=== PATIENT | female | born 1950 | race Caucasian/White ===

== ENCOUNTER 2016-04-13 14:03 | Emergency (ER) | payer MEDICAID, MEDICARE ==
[~2016-04-13] VITALS: Ht 152.4 cm; Wt 47.6 kg
[~2016-04-13 14:03] MED LIST: CILO100T PO; DIPH25TA43 PO; GABA-494 PO; INVANZ IV; LANS30CA63 PO; MELA5CAP PO; METO25TA5 PO; NOR5T PO; OXYB5TAB62 PO; RIVA20TA PO
[2016-04-13 15:17] LABS: Basophils # (auto) 0 uL; Basophils % (auto) 0.3 % (0.0-2.0); Eosinophils # (auto) 0.3 uL; Eosinophils % (auto) 2.1 % (0.0-7.0); Hematocrit 40.1 % (36.0-46.0); Hemoglobin 12.9 g/dL (12.2-16.2); Lymphocytes # (auto) 2.2 uL; Lymphocytes % (auto) 17.9 % (10.0-50.0); Mean Corpuscular Hemoglobin 28.6 pg (28.0-32.0); Mean Corpuscular Hgb Conc. 32.2 g/dL (32.0-36.0); Mean Corpuscular Volume 88.6 fL (80.0-100.0); Mean Platelet Volume 7.3 fL (7.4-10.4); Monocytes # (auto) 0.4 uL; Monocytes % (auto) 3.6 % (0.0-12.0); Neutrophils # (auto) 9.2 uL; Neutrophils % (auto) 76.1 % (37.0-80.0); Platelet Count (auto) 439 10^3/uL (140-450); Red Cell Distribution Width 14.2 % (11.6-16.0)
[2016-04-13 15:26] LABS: Albumin 3.4 g/dL (3.4-5.0); BUN/Creatinine Ratio 45.5; Bilirubin, Total 0.3 mg/dL (0.2-1.0); Calcium 9.2 mg/dL (8.5-10.1); Magnesium 2.1 mg/dL (1.6-2.6); Potassium 4.2 mmol/L (3.5-5.1); Total Protein 7.1 g/dL (6.4-8.2)
[2016-04-13 19:24] VITALS: BP 123/76
[2016-04-13] MEDS ORDERED: HYDROcodone-ACET 10/325MG TAB PO ONE ×2 (20:15)
== END 2016-04-13 20:36 | disposition home or self-care (01) ==
LOC: EDBD 14:03 → ER 14:11
DX: T62.2X1A Toxic effect of other ingested (parts of) plant(s), accidental (unintentional), initial encounter (principal); K29.70 Gastritis, unspecified, without bleeding; J44.9 Chronic obstructive pulmonary disease, unspecified; I11.0 Hypertensive heart disease with heart failure; E11.9 Type 2 diabetes mellitus without complications; I25.2 Old myocardial infarction; K21.9 Gastro-esophageal reflux disease without esophagitis; E78.5 Hyperlipidemia, unspecified; F17.210 Nicotine dependence, cigarettes, uncomplicated; I48.91 Unspecified atrial fibrillation; Z79.899 Other long term (current) drug therapy; Z86.73 Personal history of transient ischemic attack (TIA), and cerebral infarction without residual deficits; Z88.6 Allergy status to analgesic agent; Z88.8 Allergy status to other drugs, medicaments and biological substances; Z98.61 Coronary angioplasty status; Y93.9 Activity, unspecified; Y99.9 Unspecified external cause status; Y92.89 Other specified places as the place of occurrence of the external cause
CPT/HCPCS: 36415; 71010; 80053; 83735; 84484; 85025; 93005; 94761

== ENCOUNTER 2016-12-13 23:02 | Emergency (ER) | payer OTHER ==
[~2016-12-13] VITALS: Ht 162.6 cm; Wt 49.9 kg
[~2016-12-13 23:02] MED LIST changes: +HYDR-4663 PO; -NOR5T PO
[2016-12-13 23:34] LABS: Basophils # (auto) 0.1 uL; Basophils % (auto) 0.7 % (0.0-2.0); Eosinophils # (auto) 0.2 uL; Eosinophils % (auto) 1.4 % (0.0-7.0); Hematocrit 42.1 % (36.0-46.0); Hemoglobin 14.4 g/dL (12.2-16.2); Lymphocytes # (auto) 2.5 uL; Lymphocytes % (auto) 21.8 % (10.0-50.0); Mean Corpuscular Hemoglobin 30.9 pg (28.0-32.0); Mean Corpuscular Hgb Conc. 34.3 g/dL (32.0-36.0); Mean Corpuscular Volume 90.1 fL (80.0-100.0); Mean Platelet Volume 7.2 fL (7.4-10.4); Monocytes # (auto) 0.6 uL; Monocytes % (auto) 5.1 % (0.0-12.0); Nucleated Red Blood Cells % 0.1 %; Platelet Count (auto) 471 10^3/uL (140-450); Red Cell Distribution Width 14.2 % (11.6-16.0); White Blood Cell 11.2 10^3/uL (4.4-10.8)
[2016-12-13 23:45] VITALS: BP 136/71
[2016-12-13 23:50] LABS: INR 0.95 (0.9-1.15); Partial Thromboplastin Time 28.7 sec (22.64-33.71); Prothrombin Time 10.4 sec (9.37-12.3)
[2016-12-13 23:57] LABS: Amylase 8 U/L (25-115); Anion Gap 9 (5-15); Aspartate Aminotransferase 19 U/L (15-37); BUN/Creatinine Ratio 19.7; Blood Urea Nitrogen 12 mg/dL (7-18); Calcium 9.1 mg/dL (8.5-10.1); Carbon Dioxide 21 mmol/L (21-32); Chloride 109 mmol/L (98-107); GFR African American 127 mL/min; GFR Non-African American 105 mL/min; Glucose 225 mg/dL (74-106); Magnesium 2.1 mg/dL (1.6-2.6); Potassium 3.9 mmol/L (3.5-5.1); Sodium 139 mmol/L (136-145)
[2016-12-14 00:02] LABS: Alkaline Phosphatase 166 U/L (45-117); Bilirubin, Total 0.4 mg/dL (0.2-1.0); Total Protein 7.1 g/dL (6.4-8.2)
[2016-12-14] MEDS ORDERED: MORPHINE SULF INJ 2 MG/ML SYRINGE 1ML IV ONE (00:45)
[2016-12-14] MEDS ORDERED: ONDANSETRON HCL 4 MG/2 ML VIAL IV ONE (00:45)
[2016-12-14] MEDS ORDERED: CIPROFLOXACIN HCL 500 MG TAB PO ONE (01:45)
[2016-12-14 02:32] LABS: Urine Bilirubin Negative (Negative); Urine Blood 2+ /uL (Negative); Urine Color Yellow (Yellow); Urine Glucose Normal (Normal); Urine Ketone Negative (Negative); Urine Mucus FEW (None Seen); Urine Nitrite POSITIVE (Negative); Urine RBC 54 /hpf (0 - 4); Urine Squamous Epithelial Cell MOD /hpf (<5); Urine Urobilinogen Normal (Negative); Urine WBC Clumps PRESENT /hpf (None Seen)
== END 2016-12-14 01:56 | disposition home or self-care (01) ==
LOC: ER 23:02 → EDBD 23:02 → ER 12-14 01:56
DX: N39.0 Urinary tract infection, site not specified (principal); I11.0 Hypertensive heart disease with heart failure; I50.9 Heart failure, unspecified; E78.5 Hyperlipidemia, unspecified; F17.210 Nicotine dependence, cigarettes, uncomplicated; K21.9 Gastro-esophageal reflux disease without esophagitis; Z86.73 Personal history of transient ischemic attack (TIA), and cerebral infarction without residual deficits; J44.9 Chronic obstructive pulmonary disease, unspecified; Z90.710 Acquired absence of both cervix and uterus; Z90.89 Acquired absence of other organs; Z98.61 Coronary angioplasty status; Z88.6 Allergy status to analgesic agent; Z88.8 Allergy status to other drugs, medicaments and biological substances; Z79.899 Other long term (current) drug therapy
CPT/HCPCS: 36415; 74176; 80053; 80307; 81001; 82150; 83690; 83735; 84484; 85025; 85610; 85730; 93005; 96374; 96375; 99285; J2270; J2405

== ENCOUNTER 2017-04-22 19:30 | Emergency (ER) | payer OTHER ==
[~2017-04-22] VITALS: Ht 152.4 cm; Wt 48.5 kg
[~2017-04-22 19:30] MED LIST changes: -GABA-494 PO; +GABA100C9 PO; -HYDR-4663 PO; +HYDR-4683 PO
[2017-04-22 20:15] LABS: Basophils # (auto) 0.1 uL; Basophils % (auto) 0.8 % (0.0-2.0); Eosinophils # (auto) 0.1 uL; Eosinophils % (auto) 1.3 % (0.0-7.0); Hematocrit 40.9 % (36.0-46.0); Hemoglobin 13.6 g/dL (12.2-16.2); Lymphocytes # (auto) 2.1 uL; Lymphocytes % (auto) 18.1 % (10.0-50.0); Mean Corpuscular Hgb Conc. 33.2 g/dL (32.0-36.0); Mean Corpuscular Volume 90.5 fL (80.0-100.0); Monocytes # (auto) 0.6 uL; Monocytes % (auto) 5.3 % (0.0-12.0); Neutrophils # (auto) 8.5 uL; Neutrophils % (auto) 74.5 % (37.0-80.0); Platelet Count (auto) 344 10^3/uL (140-450); Red Blood Cells 4.52 10^6/uL (4.0-5.20); Red Cell Distribution Width 13.8 % (11.8-14.3); White Blood Cell 11.3 10^3/uL (4.4-10.8)
[2017-04-22 20:26] LABS: INR 1.02 (0.9-1.15); Partial Thromboplastin Time 30.3 sec (22.64-33.71); Prothrombin Time 11.1 sec (9.37-12.3)
[2017-04-22 20:57] LABS: Alanine Aminotransferase 16 U/L (13-56); Albumin 3.1 g/dL (3.4-5.0); Alkaline Phosphatase 176 U/L (45-117); Anion Gap 12 (5-15); Aspartate Aminotransferase 15 U/L (15-37); BUN/Creatinine Ratio 28.4; Blood Urea Nitrogen 27 mg/dL (7-18); Calcium 7.9 mg/dL (8.5-10.1); Carbon Dioxide 16 mmol/L (21-32); Chloride 111 mmol/L (98-107); GFR African American 76 mL/min; GFR Non-African American 63 mL/min; Glucose 172 mg/dL (74-106); Sodium 139 mmol/L (136-145); Total Protein 7.2 g/dL (6.4-8.2)
[2017-04-22 21:31] LABS: Bilirubin, Total 0.3 mg/dL (0.2-1.0)
[2017-04-22] MEDS ORDERED: HYDROcodone-ACET 5/325MG TAB PO ONE (21:45)
[2017-04-22] MEDS ORDERED: SODIUM CHLORIDE 0.9% 1,000 ML IV ONE (21:45)
[2017-04-22 22:38] LABS: Partial Thromboplastin Time 29.5 sec (22.64-33.71); Prothrombin Time 10.9 sec (9.37-12.3)
[2017-04-22 23:25] LABS: Urine Bacteria MANY /hpf (None Seen); Urine Blood 1+ /uL (Negative); Urine Specific Gravity 1.012 (1.001-1.035); Urine WBC 217 /hpf (0 - 5); Urine WBC Clumps PRESENT /hpf (None Seen)
[2017-04-23] MEDS ORDERED: cefTRIAXone 1GM/10ml IVPUSH 10 ML IV ONE (00:45)
[2017-04-23 03:32] VITALS: BP 183/79
== END 2017-04-23 04:05 | disposition home or self-care (01) ==
LOC: EDUNIT# 19:30 → ER 19:30 → EDBD 19:30 → ER 04-23 04:05
DX: N39.0 Urinary tract infection, site not specified (principal); R10.9 Unspecified abdominal pain; R07.89 Other chest pain; E11.9 Type 2 diabetes mellitus without complications; R51 Headache; I25.2 Old myocardial infarction; Z86.73 Personal history of transient ischemic attack (TIA), and cerebral infarction without residual deficits; Z88.6 Allergy status to analgesic agent; Z88.8 Allergy status to other drugs, medicaments and biological substances
CPT/HCPCS: 36415; 51702; 70450; 80053; 81001; 83735; 83880; 84443; 84484; 85025; 85379; 85610; 85730; 93005; 96361; 96374; 99285; J7030

== ENCOUNTER 2017-05-21 04:01 | Emergency (ER) | payer OTHER ==
[~2017-05-21] VITALS: Ht 160 cm; Wt 49.9 kg
[2017-05-21 05:48] LABS: Urine Bacteria FEW /hpf (None Seen); Urine Blood Negative /uL (Negative); Urine Mucus FEW (None Seen); Urine Specific Gravity 1.011 (1.001-1.035); Urine WBC 18 /hpf (0 - 5)
[2017-05-21 05:49] LABS: Urine Budding Yeast Few /hpf (None Seen)
[2017-05-21 05:53] LABS: Alcohol, Urine < 3.0 mg/dL (0-5); Amphetamine Screen, Urine NEGATIVE (NEGATIVE); Barbiturate Scree,Urine NEGATIVE (NEGATIVE); Benzodiazephine Screen, Urine NEGATIVE (NEGATIVE); Cannabinoid Screen, Urine NEGATIVE (NEGATIVE); Cocaine Screen, Urine NEGATIVE (NEGATIVE); Opiate Scree,Urine NEGATIVE (NEGATIVE); Phencyclidine Screen, Urine NEGATIVE (NEGATIVE)
[2017-05-21 05:58] LABS: Basophils # (auto) 0 uL; Basophils % (auto) 0.4 % (0.0-2.0); Eosinophils # (auto) 0.1 uL; Eosinophils % (auto) 1.2 % (0.0-7.0); Hematocrit 41.1 % (36.0-46.0); Hemoglobin 13.5 g/dL (12.2-16.2); Lymphocytes # (auto) 1.9 uL; Lymphocytes % (auto) 16.4 % (10.0-50.0); Mean Corpuscular Hemoglobin 29.9 pg (28.0-32.0); Mean Corpuscular Hgb Conc. 32.9 g/dL (32.0-36.0); Mean Corpuscular Volume 90.8 fL (80.0-100.0); Monocytes # (auto) 0.7 uL; Monocytes % (auto) 6.4 % (0.0-12.0); Neutrophils # (auto) 8.6 uL; Neutrophils % (auto) 75.6 % (37.0-80.0); Nucleated Red Blood Cells % 0.1 %; Platelet Count (auto) 321 10^3/uL (140-450); Red Blood Cells 4.52 10^6/uL (4.0-5.20); Red Cell Distribution Width 14.3 % (11.8-14.3); White Blood Cell 11.4 10^3/uL (4.4-10.8)
[2017-05-21 06:11] LABS: Alanine Aminotransferase 17 U/L (13-56); Anion Gap 10 (5-15); Aspartate Aminotransferase 17 U/L (15-37); BUN/Creatinine Ratio 40.8; Blood Alcohol < 3.0 mg/dL (0-5); Blood Urea Nitrogen 31 mg/dL (7-18); Calcium 8.2 mg/dL (8.5-10.1); Carbon Dioxide 19 mmol/L (21-32); Chloride 112 mmol/L (98-107); GFR African American 98 mL/min; GFR Non-African American 81 mL/min; Glucose 136 mg/dL (74-106); Potassium 3.9 mmol/L (3.5-5.1); Sodium 141 mmol/L (136-145)
[2017-05-21 06:16] LABS: Alkaline Phosphatase 202 U/L (45-117); Bilirubin, Total 0.3 mg/dL (0.2-1.0); Total Protein 6.9 g/dL (6.4-8.2)
[2017-05-21 07:23] VITALS: BP 127/69
[2017-05-21] MEDS ORDERED: SODIUM CHLORIDE 0.9% 1,000 ML IV ONE (08:30)
[2017-05-21] MEDS ORDERED: LEVOFLOXACIN 750MG 150 ML IV ONE (08:30)
== END 2017-05-21 12:12 | disposition home or self-care (01) ==
LOC: ER 04:01 → MERGE 04:01 → EDUNIT# 04:01 → EDBD 04:01 → ER 12:12
DX: R40.0 Somnolence (principal); N39.0 Urinary tract infection, site not specified; E44.1 Mild protein-calorie malnutrition; Z68.1 Body mass index [BMI] 19.9 or less, adult; E11.9 Type 2 diabetes mellitus without complications; I10 Essential (primary) hypertension; I25.2 Old myocardial infarction; Z86.73 Personal history of transient ischemic attack (TIA), and cerebral infarction without residual deficits; Z88.8 Allergy status to other drugs, medicaments and biological substances; Z87.440 Personal history of urinary (tract) infections; Z90.710 Acquired absence of both cervix and uterus; Z87.891 Personal history of nicotine dependence
CPT/HCPCS: 36415; 70450; 71045; 80053; 80307; 80320; 81001; 83735; 84443; 84484; 85025; 87086; 87088; 87186; 93005; 96365; 99285; J1956; J7030

== ENCOUNTER 2017-12-27 21:11 | Inpatient (IN) | payer OTHER ==
[~2017-12-27] VITALS: Ht 160 cm; Wt 44.8 kg
[~2017-12-27 21:11] MED LIST changes: +OXYB5TAB24 PO; -OXYB5TAB62 PO
[2017-12-27] MEDS ORDERED: ACETAMINOPHEN 325 MG TAB PO ONE (22:15)
[2017-12-27] MEDS ORDERED: SODIUM CHLORIDE 0.9% 1,000 ML IVB ONE (22:19)
[2017-12-27 22:52] LABS: Basophils # (auto) 0 uL; Basophils % (auto) 0.4 % (0.0-2.0); Eosinophils # (auto) 0 uL; Eosinophils % (auto) 0.1 % (0.0-7.0); Hematocrit 43.5 % (36.0-46.0); Hemoglobin 14.5 g/dL (12.2-16.2); Lymphocytes % (auto) 10.1 % (10.0-50.0); Mean Corpuscular Hemoglobin 29.9 pg (28.0-32.0); Mean Corpuscular Hgb Conc. 33.5 g/dL (32.0-36.0); Mean Corpuscular Volume 89.3 fL (80.0-100.0); Monocytes # (auto) 0.6 uL; Monocytes % (auto) 6.2 % (0.0-12.0); Neutrophils # (auto) 8.6 uL; Neutrophils % (auto) 83.2 % (37.0-80.0); Platelet Count (auto) 264 10^3/uL (140-450); Red Blood Cells 4.87 10^6/uL (4.0-5.20); Red Cell Distribution Width 14.5 % (11.8-14.3); White Blood Cell 10.3 10^3/uL (4.4-10.8)
[2017-12-27 23:11] LABS: Partial Thromboplastin Time 31.9 sec (23.78-33.04); Prothrombin Time 10.7 sec (9.27-12.13)
[2017-12-27 23:19] LABS: Alanine Aminotransferase 14 U/L (13-56); Albumin 3.1 g/dL (3.4-5.0); Anion Gap 10 (5-15); Aspartate Aminotransferase 14 U/L (15-37); Blood Alcohol < 3.0 mg/dL (0-5); Blood Urea Nitrogen 13 mg/dL (7-18); Calcium 8.5 mg/dL (8.5-10.1); Carbon Dioxide 20 mmol/L (21-32); Chloride 105 mmol/L (98-107); GFR African American 159 mL/min; GFR Non-African American 132 mL/min; Glucose 179 mg/dL (74-106); Magnesium 1.9 mg/dL (1.6-2.6); Potassium 3.6 mmol/L (3.5-5.1); Sodium 135 mmol/L (136-145)
[2017-12-27 23:28] LABS: Alkaline Phosphatase 123 U/L (45-117); Bilirubin, Total 0.8 mg/dL (0.2-1.0); Total Protein 7.6 g/dL (6.4-8.2)
[2017-12-27 23:37] LABS: Urine Bacteria MANY /hpf (None Seen); Urine Blood 1+ /uL (Negative); Urine Budding Yeast FEW /hpf (None Seen); Urine Specific Gravity 1.018 (1.001-1.035); Urine WBC 202 /hpf (0 - 5)
[2017-12-27 23:56] LABS: Amphetamine Screen, Urine NEGATIVE (NEGATIVE); Barbiturate Scree,Urine NEGATIVE (NEGATIVE); Benzodiazephine Screen, Urine NEGATIVE (NEGATIVE); Cannabinoid Screen, Urine NEGATIVE (NEGATIVE); Cocaine Screen, Urine NEGATIVE (NEGATIVE); Opiate Scree,Urine NEGATIVE (NEGATIVE); Phencyclidine Screen, Urine NEGATIVE (NEGATIVE)
[2017-12-28] MEDS ORDERED: PIPERACILLIN-TAZOB 3.375GM 100 ML IV ONE (01:30)
[2017-12-28] MEDS ORDERED: ACETAMINOPHEN 500 MG TAB PO PRN (04:45)
[2017-12-28] MEDS ORDERED: ONDANSETRON HCL 4 MG/2 ML VIAL IV PRN (04:45)
[2017-12-28] MEDS: GABAPENTIN 100 MG CAP PO SCH ×3 (06:00→22:26)
[2017-12-28 07:18] LABS: Basophils # (auto) 0 uL; Basophils % (auto) 0.5 % (0.0-2.0); Eosinophils # (auto) 0 uL; Eosinophils % (auto) 0.3 % (0.0-7.0); Hematocrit 39.4 % (36.0-46.0); Hemoglobin 13.7 g/dL (12.2-16.2); Lymphocytes # (auto) 1.1 uL; Lymphocytes % (auto) 15.1 % (10.0-50.0); Mean Corpuscular Hemoglobin 31.2 pg (28.0-32.0); Mean Corpuscular Hgb Conc. 34.7 g/dL (32.0-36.0); Monocytes # (auto) 0.6 uL; Monocytes % (auto) 7.9 % (0.0-12.0); Neutrophils # (auto) 5.8 uL; Neutrophils % (auto) 76.2 % (37.0-80.0); Platelet Count (auto) 233 10^3/uL (140-450); Red Blood Cells 4.38 10^6/uL (4.0-5.20); Red Cell Distribution Width 14.6 % (11.8-14.3); White Blood Cell 7.6 10^3/uL (4.4-10.8)
[2017-12-28 07:36] LABS: BUN/Creatinine Ratio 25.6; Calcium 8.3 mg/dL (8.5-10.1); Potassium 3.5 mmol/L (3.5-5.1)
[2017-12-28] MEDS: cefTRIAXone 1GM/10ml IVPUSH 10 ML IV SCH (08:04)
[2017-12-28] MEDS: METOPROLOL TARTRATE 25 MG TAB PO SCH ×2 (08:04→22:26)
[2017-12-28] MEDS: HYDROcodone-ACET 5/325MG TAB PO PRN ×3 (08:05→22:40)
[2017-12-28] MEDS: ONDANSETRON HCL 4 MG/2 ML VIAL IV PRN ×3 (08:05→22:40)
[2017-12-28 15:13] VITALS: BP 128/66
[2017-12-28 17:24] VITALS: BP 118/67
[2017-12-28] MEDS ORDERED: NICOTINE 21MG/24 HR TOPICAL PATCH TD SCH (18:45)
[2017-12-28] MEDS: NICOTINE 7MG/24HR TOPICAL PATCH TD SCH (19:01)
[2017-12-28 22:00] VITALS: BP 138/69
[2017-12-29 05:00] VITALS: BP 151/70
[2017-12-29] MEDS: GABAPENTIN 100 MG CAP PO SCH ×3 (07:03→22:19)
[2017-12-29 07:55] LABS: Basophils # (auto) 0 uL; Basophils % (auto) 0.5 % (0.0-2.0); Eosinophils # (auto) 0.1 uL; Eosinophils % (auto) 1.2 % (0.0-7.0); Hematocrit 42.6 % (36.0-46.0); Hemoglobin 14.4 g/dL (12.2-16.2); Lymphocytes # (auto) 1.7 uL; Lymphocytes % (auto) 27.4 % (10.0-50.0); Mean Corpuscular Hemoglobin 30.6 pg (28.0-32.0); Mean Corpuscular Hgb Conc. 33.8 g/dL (32.0-36.0); Mean Corpuscular Volume 90.4 fL (80.0-100.0); Monocytes # (auto) 0.6 uL; Neutrophils # (auto) 3.8 uL; Neutrophils % (auto) 60.9 % (37.0-80.0); Nucleated Red Blood Cells % 0.2 %; Platelet Count (auto) 266 10^3/uL (140-450); Red Blood Cells 4.71 10^6/uL (4.0-5.20); Red Cell Distribution Width 14.4 % (11.8-14.3); White Blood Cell 6.3 10^3/uL (4.4-10.8)
[2017-12-29 08:01] VITALS: BP 142/67
[2017-12-29 08:08] LABS: BUN/Creatinine Ratio 27.8; Magnesium 2.4 mg/dL (1.6-2.6); Potassium 3.7 mmol/L (3.5-5.1)
[2017-12-29] MEDS: NICOTINE 7MG/24HR TOPICAL PATCH TD SCH ×2 (10:00→10:17)
[2017-12-29] MEDS: METOPROLOL TARTRATE 25 MG TAB PO SCH ×2 (10:19→22:20)
[2017-12-29] MEDS: cefTRIAXone 1GM/10ml IVPUSH 10 ML IV SCH (11:20)
[2017-12-29 11:24] VITALS: BP 146/77
[2017-12-29] MEDS: HYDROcodone-ACET 5/325MG TAB PO PRN ×2 (14:03→22:19)
[2017-12-29 16:47] VITALS: BP 137/74
[2017-12-29] MEDS: PROCHLORPERAZINE EDISYLATE 5 MG/ML 2ML VIAL IV PRN (20:31)
[2017-12-29 22:00] VITALS: BP 162/81
[2017-12-29] MEDS ORDERED: TEMAZEPAM 15 MG CAP PO ONE (23:10)
[2017-12-30] MEDS: HYDROcodone-ACET 5/325MG TAB PO PRN ×2 (04:10→11:51)
[2017-12-30 05:00] VITALS: BP 169/90
[2017-12-30] MEDS: GABAPENTIN 100 MG CAP PO SCH (05:45)
[2017-12-30] MEDS: PROCHLORPERAZINE EDISYLATE 5 MG/ML 2ML VIAL IV PRN (05:46)
[2017-12-30 09:22] VITALS: BP 184/94
[2017-12-30] MEDS: cefTRIAXone 1GM/10ml IVPUSH 10 ML IV SCH (09:23)
[2017-12-30] MEDS: NICOTINE 7MG/24HR TOPICAL PATCH TD SCH (09:23)
[2017-12-30] MEDS: METOPROLOL TARTRATE 25 MG TAB PO SCH (09:31)
[2017-12-30 11:21] VITALS: BP 136/84
[2017-12-30] MEDS: ONDANSETRON HCL 4 MG/2 ML VIAL IV PRN (11:50)
[2017-12-30 13:00] VITALS: BP 134/82
== END 2017-12-30 13:30 | disposition home health service (06) | DRG 871 ==
LOC: EDBD 21:11 → EDUNIT# 21:11 → ER 21:19 → OVERFLOW 21:20 → WEST WING 12-28 14:25
PROVIDERS: ADMIT Nurse Practitioner Family; ATTEND Internal Medicine
DX: A41.9 Sepsis, unspecified organism (principal); G93.41 Metabolic encephalopathy; E87.1 Hypo-osmolality and hyponatremia; E44.0 Moderate protein-calorie malnutrition; B49 Unspecified mycosis; Z68.1 Body mass index [BMI] 19.9 or less, adult; E11.42 Type 2 diabetes mellitus with diabetic polyneuropathy; N30.80 Other cystitis without hematuria; B96.1 Klebsiella pneumoniae [K. pneumoniae] as the cause of diseases classified elsewhere; I48.0 Paroxysmal atrial fibrillation; I10 Essential (primary) hypertension; Z78.9 Other specified health status; Z79.01 Long term (current) use of anticoagulants; Z81.8 Family history of other mental and behavioral disorders; Z82.49 Family history of ischemic heart disease and other diseases of the circulatory system; Z83.3 Family history of diabetes mellitus; Z86.73 Personal history of transient ischemic attack (TIA), and cerebral infarction without residual deficits; I25.2 Old myocardial infarction; Z88.8 Allergy status to other drugs, medicaments and biological substances; Z88.5 Allergy status to narcotic agent; Z79.899 Other long term (current) drug therapy; Z82.0 Family history of epilepsy and other diseases of the nervous system; Z82.5 Family history of asthma and other chronic lower respiratory diseases; Z84.89 Family history of other specified conditions
CPT/HCPCS: 36415; 71045; 80048; 80053; 80307; 80320; 81001; 83036; 83605; 83735; 83880; 84484; 85025; 85610; 85730; 86141; 87040; 87086; 87088; 87186; 93005; 94761; 96365; 96375; 97116; A6257; J0696; J2405; J2543

== ENCOUNTER 2018-05-30 17:35 | Inpatient (IN) | payer OTHER | END 2018-06-02 17:40 | disposition home health service (06) | LOC: CENTRAL 23:45 → TELE-CENTR 05-31 02:38 → ER 17:35 → TELE 23:17 | DX: A41.9 Sepsis, unspecified organism (principal); G93.41 Metabolic encephalopathy; N39.0 Urinary tract infection, site not specified; N13.6 Pyonephrosis; F32.9 Major depressive disorder, single episode, unspecified; J44.9 Chronic obstructive pulmonary disease, unspecified; G62.9 Polyneuropathy, unspecified; K21.9 Gastro-esophageal reflux disease without esophagitis; G89.29 Other chronic pain; M48.061 Spinal stenosis, lumbar region without neurogenic claudication ==

== ENCOUNTER 2018-07-22 14:54 | Inpatient (IN) | payer OTHER ==
[~2018-07-22] VITALS: Ht 154.9 cm; Wt 59.3 kg
[~2018-07-22 14:54] MED LIST changes: +BACL10TA PO; -DIPH25TA43 PO; -INVANZ IV; -LANS30CA63 PO; -MELA5CAP PO; -METO25TA5 PO; +PRO10T PO; -RIVA20TA PO; +ROPI4TAB3 PO; +SERT-138 PO; +TRAZ50TA2 PO; +[UNRECOGNIZED DRUG - CODE] PO
[2018-07-22 15:45] LABS: Albumin 3.1 g/dL (3.4-5.0); Calcium 8.6 mg/dL (8.5-10.1); Potassium 3.8 mmol/L (3.5-5.1)
[2018-07-22 15:49] LABS: BUN/Creatinine Ratio 28.6; Bilirubin, Total 0.4 mg/dL (0.2-1.0); Total Protein 7.5 g/dL (6.4-8.2)
[2018-07-22 16:22] LABS: Hematocrit 44.9 % (36.0-46.0); Hemoglobin 14.7 g/dL (12.2-16.2); Mean Corpuscular Hemoglobin 29.3 pg (28.0-32.0); Mean Corpuscular Hgb Conc. 32.7 g/dL (32.0-36.0); Mean Corpuscular Volume 89.8 fL (80.0-100.0); Platelet Count (auto) 305 10^3/uL (140-450); Red Cell Distribution Width 14.9 % (11.8-14.3); White Blood Cell 14.5 10^3/uL (4.4-10.8)
[2018-07-22 16:32] LABS: Basophils % (manual) 0 (0.0-2.0); Blast Cells 0; Eosinophils % (manual) 0 (0-7); Myelocytes % 0; Promyelocytes % 0; Reactive Lymphocytes 0
[2018-07-22] MEDS ORDERED: ONDANSETRON HCL 4 MG/2 ML VIAL IV ONE (17:45)
[2018-07-22] MEDS ORDERED: SODIUM CHLORIDE 0.9% 1,000 ML IV ONE ×2 (17:45→21:15)
[2018-07-22 18:11] LABS: Band Neutrophils % (manual) 13
[2018-07-22 18:12] LABS: Lymphocytes % (manual) 9 (10.0-50.0); Metamyelocytes % 1; Monocytes % (manual) 2 (0-12)
[2018-07-22 18:29] LABS: Urine Bacteria MANY /hpf (None Seen); Urine Blood 2+ /uL (Negative); Urine Budding Yeast MODERATE /hpf (None Seen); Urine Mucus FEW (None Seen); Urine Specific Gravity 1.018 (1.001-1.035); Urine WBC 899 /hpf (0 - 5); Urine WBC Clumps PRESENT /hpf (None Seen)
[2018-07-22 18:34] LABS: Magnesium 1.2 mg/dL (1.6-2.6)
[2018-07-22 18:37] LABS: Partial Thromboplastin Time 29.6 sec (23.78-33.04); Prothrombin Time 10.7 sec (9.27-12.13)
[2018-07-22 19:01] LABS: Lactic Acid w/Reflex 6.3 mmol/L (0.4-2.0)
[2018-07-22] MEDS ORDERED: cefTRIAXone 1GM/50ML D5W 50 ML IV ONE (19:15)
[2018-07-22] MEDS ORDERED: MORPHINE SULFATE 4 MG/ML SYR/VIAL IV ONE (20:15)
[2018-07-22] MEDS: MAGNESIUM SULFATE 1GM/100ML 100 ML IV SCH ×2 (20:51→21:36)
[2018-07-22] MEDS: SODIUM CHLORIDE 0.9% 1,000 ML IV SCH (21:15)
[2018-07-22] MEDS ORDERED: MORPHINE SULF INJ 2 MG/ML SYRINGE 1ML IV PRN (21:15)
[2018-07-22] MEDS ORDERED: VANCOMYCIN PER PHARMACY 0 MG IV SCH (21:15)
[2018-07-22] MEDS ORDERED: BACLOFEN 10 MG TAB PO PRN (21:15)
[2018-07-22] MEDS ORDERED: NITROGLYCERIN 0.4 MG SL TAB SL PRN (21:15)
[2018-07-22] MEDS ORDERED: ACETAMINOPHEN 325 MG TAB PO PRN (21:15)
[2018-07-22] MEDS ORDERED: DEXTROSE (50%) 50ML SYRG IV PRN (21:15)
[2018-07-22] MEDS ORDERED: VANCOMYCIN 1GM/250ML 250 ML IV ONE (21:45)
[2018-07-22 22:30] VITALS: BP 130/66
[2018-07-22 22:40] VITALS: BP 130/66
[2018-07-22] MEDS: GABAPENTIN 400 MG CAP PO SCH (23:30)
[2018-07-22] MEDS: OXYBUTYNIN CHL 5 MG TAB PO SCH (23:30)
[2018-07-22] MEDS: FAMOTIDINE 20 MG TAB PO SCH (23:30)
[2018-07-22] MEDS: CILOSTAZOL 100 MG TAB PO SCH (23:30)
[2018-07-22] MEDS: traZODone HCL 50 MG TAB PO SCH (23:30)
[2018-07-22] MEDS: ACCU-CHEK COMFORT CURVE STRIP VI SCH (23:32)
[2018-07-22] MEDS: InsuLIN REG 1unit/0.01ml Soln (100units/ml) SC SCH (23:40)
[2018-07-22] MEDS: TEMAZEPAM 15 MG CAP PO PRN (23:48)
[2018-07-23] MEDS: ONDANSETRON HCL 4 MG/2 ML VIAL IV PRN ×2 (00:15→10:29)
[2018-07-23] MEDS: HYDROcodone-ACET 5/325MG TAB PO PRN ×3 (00:15→19:33)
[2018-07-23 05:00] VITALS: BP 102/60
[2018-07-23 05:36] LABS: Basophils # (auto) 0 uL; Basophils % (auto) 0.2 % (0.0-2.0); Eosinophils # (auto) 0 uL; Eosinophils % (auto) 0.1 % (0.0-7.0); Hematocrit 39.2 % (36.0-46.0); Hemoglobin 12.9 g/dL (12.2-16.2); Lymphocytes # (auto) 1.9 uL; Lymphocytes % (auto) 13.4 % (10.0-50.0); Mean Corpuscular Hemoglobin 29.4 pg (28.0-32.0); Mean Corpuscular Hgb Conc. 32.8 g/dL (32.0-36.0); Mean Corpuscular Volume 89.6 fL (80.0-100.0); Monocytes # (auto) 0.9 uL; Monocytes % (auto) 6.2 % (0.0-12.0); Neutrophils # (auto) 11.5 uL; Neutrophils % (auto) 80.1 % (37.0-80.0); Platelet Count (auto) 286 10^3/uL (140-450); Red Blood Cells 4.38 10^6/uL (4.0-5.20); Red Cell Distribution Width 15.6 % (11.8-14.3); White Blood Cell 14.4 10^3/uL (4.4-10.8)
[2018-07-23 05:46] LABS: Potassium 4.2 mmol/L (3.5-5.1)
[2018-07-23 05:50] LABS: Albumin 2.6 g/dL (3.4-5.0); Calcium 7.9 mg/dL (8.5-10.1)
[2018-07-23 05:55] LABS: BUN/Creatinine Ratio 33.3; Bilirubin, Total 0.3 mg/dL (0.2-1.0); Total Protein 6.7 g/dL (6.4-8.2)
[2018-07-23] MEDS: traZODone HCL 50 MG TAB PO SCH ×3 (06:30→22:07)
[2018-07-23] MEDS: OXYBUTYNIN CHL 5 MG TAB PO SCH ×3 (06:30→22:07)
[2018-07-23] MEDS: GABAPENTIN 400 MG CAP PO SCH ×3 (06:30→22:08)
[2018-07-23] MEDS: InsuLIN REG 1unit/0.01ml Soln (100units/ml) SC SCH ×3 (06:40→17:14)
[2018-07-23] MEDS: ACCU-CHEK COMFORT CURVE STRIP VI SCH ×3 (06:40→17:14)
[2018-07-23 09:00] VITALS: BP 93/48
[2018-07-23] MEDS: SERTRALINE HCL 50 MG TAB PO SCH (09:53)
[2018-07-23] MEDS: CILOSTAZOL 100 MG TAB PO SCH ×2 (09:53→22:07)
[2018-07-23] MEDS: FAMOTIDINE 20 MG TAB PO SCH (09:53)
[2018-07-23] MEDS: SODIUM CHLORIDE 0.9% 1,000 ML IV SCH (10:39)
[2018-07-23] MEDS: FLUCONAZOLE 200MG/100ML 100 ML IV SCH (12:15)
[2018-07-23 13:00] VITALS: BP 115/79
[2018-07-23 16:52] VITALS: BP 102/62
[2018-07-23] MEDS: VANCOMYCIN 1GM/250ML 250 ML IV SCH (16:57)
[2018-07-23 21:20] VITALS: BP 109/69
[2018-07-23] MEDS: cefTRIAXone 1GM/50ML D5W 50 ML IV SCH (21:23)
[2018-07-23] MEDS: MORPHINE SULF INJ 2 MG/ML SYRINGE 1ML IV PRN (21:24)
[2018-07-23 22:00] VITALS: BP 100/57
[2018-07-23] MEDS: TEMAZEPAM 15 MG CAP PO PRN (22:08)
[2018-07-24] MEDS: InsuLIN REG 1unit/0.01ml Soln (100units/ml) SC SCH ×4 (00:09→17:28)
[2018-07-24] MEDS: ACCU-CHEK COMFORT CURVE STRIP VI SCH ×4 (00:09→17:28)
[2018-07-24 02:20] VITALS: BP 109/69
[2018-07-24] MEDS: ONDANSETRON HCL 4 MG/2 ML VIAL IV PRN ×2 (02:28→21:21)
[2018-07-24] MEDS: MORPHINE SULF INJ 2 MG/ML SYRINGE 1ML IV PRN ×3 (02:28→22:30)
[2018-07-24] MEDS: HYDROcodone-ACET 5/325MG TAB PO PRN ×3 (04:23→19:53)
[2018-07-24 04:49] VITALS: BP 119/54
[2018-07-24] MEDS: traZODone HCL 50 MG TAB PO SCH ×3 (05:13→21:05)
[2018-07-24] MEDS: GABAPENTIN 400 MG CAP PO SCH ×3 (05:13→21:04)
[2018-07-24] MEDS: OXYBUTYNIN CHL 5 MG TAB PO SCH ×3 (05:13→21:04)
[2018-07-24] MEDS: SODIUM CHLORIDE 0.9% 1,000 ML IV SCH ×2 (06:18→17:28)
[2018-07-24 06:57] LABS: Basophils # (auto) 0 uL; Basophils % (auto) 0.3 % (0.0-2.0); Eosinophils # (auto) 0.1 uL; Eosinophils % (auto) 1.4 % (0.0-7.0); Hematocrit 33.3 % (36.0-46.0); Hemoglobin 10.9 g/dL (12.2-16.2); Lymphocytes # (auto) 1.3 uL; Lymphocytes % (auto) 17.2 % (10.0-50.0); Mean Corpuscular Hemoglobin 29.7 pg (28.0-32.0); Mean Corpuscular Hgb Conc. 32.9 g/dL (32.0-36.0); Mean Corpuscular Volume 90.5 fL (80.0-100.0); Monocytes # (auto) 0.5 uL; Monocytes % (auto) 6.8 % (0.0-12.0); Neutrophils # (auto) 5.6 uL; Neutrophils % (auto) 74.3 % (37.0-80.0); Platelet Count (auto) 235 10^3/uL (140-450); Red Blood Cells 3.67 10^6/uL (4.0-5.20); Red Cell Distribution Width 15.1 % (11.8-14.3); White Blood Cell 7.6 10^3/uL (4.4-10.8)
[2018-07-24 07:29] LABS: Potassium 4.3 mmol/L (3.5-5.1)
[2018-07-24 07:37] LABS: Albumin 2.3 g/dL (3.4-5.0)
[2018-07-24 07:42] LABS: Bilirubin, Total 0.2 mg/dL (0.2-1.0)
[2018-07-24 09:00] VITALS: BP 122/60
[2018-07-24] MEDS: FLUCONAZOLE 200MG/100ML 100 ML IV SCH (09:40)
[2018-07-24] MEDS: CILOSTAZOL 100 MG TAB PO SCH ×2 (09:41→21:04)
[2018-07-24] MEDS: SERTRALINE HCL 50 MG TAB PO SCH (09:41)
[2018-07-24] MEDS: FAMOTIDINE 20 MG TAB PO SCH (09:41)
[2018-07-24] MEDS: VANCOMYCIN 1GM/250ML 250 ML IV SCH (11:28)
[2018-07-24 13:00] VITALS: BP 97/57
[2018-07-24 17:00] VITALS: BP 104/50
[2018-07-24] MEDS: cefTRIAXone 1GM/50ML D5W 50 ML IV SCH (21:04)
[2018-07-24 22:00] VITALS: BP 130/62
[2018-07-25] MEDS: InsuLIN REG 1unit/0.01ml Soln (100units/ml) SC SCH ×4 (00:24→18:24)
[2018-07-25] MEDS: ACCU-CHEK COMFORT CURVE STRIP VI SCH ×4 (00:24→18:24)
[2018-07-25] MEDS: TEMAZEPAM 15 MG CAP PO PRN ×2 (00:42→22:45)
[2018-07-25] MEDS: MORPHINE SULF INJ 2 MG/ML SYRINGE 1ML IV PRN ×4 (02:36→21:32)
[2018-07-25 05:06] VITALS: BP 112/57
[2018-07-25] MEDS: GABAPENTIN 400 MG CAP PO SCH ×3 (06:37→21:23)
[2018-07-25 06:38] LABS: Basophils # (auto) 0 uL; Basophils % (auto) 0.5 % (0.0-2.0); Eosinophils # (auto) 0.2 uL; Eosinophils % (auto) 2.7 % (0.0-7.0); Hematocrit 35.5 % (36.0-46.0); Hemoglobin 11.6 g/dL (12.2-16.2); Lymphocytes # (auto) 1.9 uL; Lymphocytes % (auto) 26.8 % (10.0-50.0); Mean Corpuscular Hemoglobin 29.8 pg (28.0-32.0); Mean Corpuscular Hgb Conc. 32.7 g/dL (32.0-36.0); Mean Corpuscular Volume 91.3 fL (80.0-100.0); Monocytes # (auto) 0.6 uL; Monocytes % (auto) 8.7 % (0.0-12.0); Neutrophils # (auto) 4.3 uL; Neutrophils % (auto) 61.3 % (37.0-80.0); Platelet Count (auto) 247 10^3/uL (140-450); Red Blood Cells 3.89 10^6/uL (4.0-5.20); Red Cell Distribution Width 14.9 % (11.8-14.3)
[2018-07-25] MEDS: OXYBUTYNIN CHL 5 MG TAB PO SCH ×3 (06:38→21:23)
[2018-07-25] MEDS: traZODone HCL 50 MG TAB PO SCH ×3 (06:38→21:22)
[2018-07-25] MEDS: SODIUM CHLORIDE 0.9% 1,000 ML IV SCH ×2 (06:47→15:55)
[2018-07-25 06:50] LABS: Potassium 4.6 mmol/L (3.5-5.1)
[2018-07-25 06:53] LABS: Albumin 2.4 g/dL (3.4-5.0); Calcium 7.7 mg/dL (8.5-10.1); Magnesium 1.8 mg/dL (1.6-2.6)
[2018-07-25 06:56] LABS: BUN/Creatinine Ratio 19.3
[2018-07-25 06:59] LABS: Bilirubin, Total 0.2 mg/dL (0.2-1.0); Total Protein 6.2 g/dL (6.4-8.2)
[2018-07-25 08:00] VITALS: BP 156/79
[2018-07-25 09:28] VITALS: BP 156/79
[2018-07-25] MEDS: CILOSTAZOL 100 MG TAB PO SCH ×2 (09:59→21:23)
[2018-07-25] MEDS: SERTRALINE HCL 50 MG TAB PO SCH (09:59)
[2018-07-25] MEDS: FLUCONAZOLE 200MG/100ML 100 ML IV SCH (09:59)
[2018-07-25] MEDS: FAMOTIDINE 20 MG TAB PO SCH (09:59)
[2018-07-25] MEDS: HYDROcodone-ACET 5/325MG TAB PO PRN ×2 (10:06→17:44)
[2018-07-25] MEDS: ONDANSETRON HCL 4 MG/2 ML VIAL IV PRN ×2 (12:15→20:06)
[2018-07-25 13:12] VITALS: BP 130/69
[2018-07-25 17:30] VITALS: BP 139/69
[2018-07-25] MEDS: cefTRIAXone 1GM/50ML D5W 50 ML IV SCH (21:17)
[2018-07-25 22:00] VITALS: BP 114/66
[2018-07-26] MEDS: InsuLIN REG 1unit/0.01ml Soln (100units/ml) SC SCH ×4 (00:01→17:23)
[2018-07-26] MEDS: ACCU-CHEK COMFORT CURVE STRIP VI SCH ×4 (00:01→17:22)
[2018-07-26] MEDS: MORPHINE SULF INJ 2 MG/ML SYRINGE 1ML IV PRN ×2 (02:44→08:49)
[2018-07-26 05:00] VITALS: BP 131/72
[2018-07-26] MEDS: OXYBUTYNIN CHL 5 MG TAB PO SCH ×2 (05:45→13:32)
[2018-07-26] MEDS: GABAPENTIN 400 MG CAP PO SCH ×2 (05:45→13:32)
[2018-07-26] MEDS: traZODone HCL 50 MG TAB PO SCH ×2 (05:45→13:32)
[2018-07-26 06:39] LABS: Basophils # (auto) 0 uL; Basophils % (auto) 0.5 % (0.0-2.0); Eosinophils # (auto) 0.2 uL; Eosinophils % (auto) 3.5 % (0.0-7.0); Hematocrit 33.2 % (36.0-46.0); Hemoglobin 10.7 g/dL (12.2-16.2); Lymphocytes # (auto) 1.6 uL; Lymphocytes % (auto) 25.9 % (10.0-50.0); Mean Corpuscular Hemoglobin 29.4 pg (28.0-32.0); Mean Corpuscular Hgb Conc. 32.4 g/dL (32.0-36.0); Mean Corpuscular Volume 90.8 fL (80.0-100.0); Monocytes # (auto) 0.6 uL; Monocytes % (auto) 8.9 % (0.0-12.0); Neutrophils # (auto) 3.8 uL; Neutrophils % (auto) 61.2 % (37.0-80.0); Platelet Count (auto) 259 10^3/uL (140-450); Red Blood Cells 3.65 10^6/uL (4.0-5.20); Red Cell Distribution Width 15.2 % (11.8-14.3); White Blood Cell 6.2 10^3/uL (4.4-10.8)
[2018-07-26 06:44] LABS: Potassium 4.3 mmol/L (3.5-5.1)
[2018-07-26 06:47] LABS: BUN/Creatinine Ratio 21.3; Calcium 8.1 mg/dL (8.5-10.1)
[2018-07-26 08:00] VITALS: BP 147/60
[2018-07-26 09:00] VITALS: BP 147/69
[2018-07-26] MEDS: ONDANSETRON HCL 4 MG/2 ML VIAL IV PRN (09:01)
[2018-07-26] MEDS: SERTRALINE HCL 50 MG TAB PO SCH (10:21)
[2018-07-26] MEDS: FAMOTIDINE 20 MG TAB PO SCH (10:21)
[2018-07-26] MEDS: FLUCONAZOLE 200MG/100ML 100 ML IV SCH (10:21)
[2018-07-26] MEDS: CILOSTAZOL 100 MG TAB PO SCH (10:21)
[2018-07-26 17:00] VITALS: BP 103/72
[2018-07-26] MEDS: HYDROcodone-ACET 5/325MG TAB PO PRN (18:58)
== END 2018-07-26 20:25 | disposition home health service (06) | DRG 871 ==
LOC: ER 14:54 → EDBD 14:54 → TELE-WESTW 21:23
PROVIDERS: ADMIT Nurse Practitioner; ATTEND Internal Medicine
DX: A41.50 Gram-negative sepsis, unspecified (principal); L89.153 Pressure ulcer of sacral region, stage 3; N13.6 Pyonephrosis; F11.20 Opioid dependence, uncomplicated; E11.9 Type 2 diabetes mellitus without complications; R32 Unspecified urinary incontinence; E83.42 Hypomagnesemia; B96.20 Unspecified Escherichia coli [E. coli] as the cause of diseases classified elsewhere; M54.9 Dorsalgia, unspecified; F32.9 Major depressive disorder, single episode, unspecified; G89.29 Other chronic pain; I10 Essential (primary) hypertension; Z74.01 Bed confinement status; Z81.8 Family history of other mental and behavioral disorders; Z82.49 Family history of ischemic heart disease and other diseases of the circulatory system; Z82.5 Family history of asthma and other chronic lower respiratory diseases; Z83.3 Family history of diabetes mellitus; Z88.1 Allergy status to other antibiotic agents; Z88.5 Allergy status to narcotic agent; Z88.8 Allergy status to other drugs, medicaments and biological substances; Z86.73 Personal history of transient ischemic attack (TIA), and cerebral infarction without residual deficits; Z87.440 Personal history of urinary (tract) infections; Z87.891 Personal history of nicotine dependence; Z90.710 Acquired absence of both cervix and uterus; Z91.19 Patient's noncompliance with other medical treatment and regimen; Z99.3 Dependence on wheelchair
CPT/HCPCS: 36415; 36600; 71045; 74176; 80048; 80053; 80202; 81001; 82150; 82805; 82962; 83036; 83605; 83690; 83735; 84484; 85007; 85025; 85027; 85610; 85730; 87040; 87077; 87086; 87088; 87186; 93005; 94761; 96361; 96365; 96367; G0378; J0696; J1450; J1815; J2405

== ENCOUNTER 2018-10-03 15:18 | Inpatient (IN) | payer OTHER ==
[~2018-10-03] VITALS: Ht 152.4 cm; Wt 54.5 kg
[~2018-10-03 15:18] MED LIST changes: +LEVO500T21 PO; -[UNRECOGNIZED DRUG - CODE] PO
[2018-10-03 16:26] LABS: Basophils # (auto) 0.1 uL; Basophils % (auto) 0.5 % (0.0-2.0); Eosinophils # (auto) 0.2 uL; Eosinophils % (auto) 1.1 % (0.0-7.0); Hematocrit 42.5 % (36.0-46.0); Lymphocytes # (auto) 2.3 uL; Lymphocytes % (auto) 17.1 % (10.0-50.0); Mean Corpuscular Hemoglobin 28.9 pg (28.0-32.0); Mean Corpuscular Volume 87.6 fL (80.0-100.0); Monocytes # (auto) 0.8 uL; Monocytes % (auto) 5.7 % (0.0-12.0); Neutrophils # (auto) 10.2 uL; Neutrophils % (auto) 75.6 % (37.0-80.0); Nucleated Red Blood Cells % 0.1 %; Platelet Count (auto) 372 10^3/uL (140-450); Red Blood Cells 4.85 10^6/uL (4.0-5.20); Red Cell Distribution Width 15.8 % (11.8-14.3); White Blood Cell 13.5 10^3/uL (4.4-10.8)
[2018-10-03 16:29] LABS: Urine Bacteria MANY /hpf (None Seen); Urine Blood 1+ /uL (Negative); Urine Budding Yeast FEW /hpf (None Seen); Urine Specific Gravity 1.006 (1.001-1.035); Urine WBC 569 /hpf (0 - 5); Urine WBC Clumps PRESENT /hpf (None Seen)
[2018-10-03] MEDS ORDERED: SODIUM CHLORIDE 0.9% 1,000 ML IVB ONE (16:33)
[2018-10-03 16:40] LABS: Albumin 3.6 g/dL (3.4-5.0); Calcium 10.3 mg/dL (8.5-10.1); Potassium 4.5 mmol/L (3.5-5.1)
[2018-10-03 16:42] LABS: Bilirubin, Total 0.4 mg/dL (0.2-1.0); Total Protein 7.8 g/dL (6.4-8.2)
[2018-10-03] MEDS ORDERED: ONDANSETRON HCL 4 MG/2 ML VIAL IV ONE (16:45)
[2018-10-03] MEDS ORDERED: MORPHINE SULF INJ 2 MG/ML SYRINGE 1ML IV ONE (16:45)
[2018-10-03 17:15] LABS: Magnesium 1.7 mg/dL (1.6-2.6)
[2018-10-03 18:09] LABS: INR 1.01 (0.9-1.15); Partial Thromboplastin Time 32.7 sec (23.64-32.05)
[2018-10-03] MEDS ORDERED: metroNIDAZOLE 500MG/100ML 100 ML IV ONE (18:15)
[2018-10-03] MEDS ORDERED: cefTRIAXone 1GM/50ML D5W 50 ML IV ONE (18:15)
[2018-10-03] MEDS ORDERED: ACETAMINOPHEN 500 MG TAB PO PRN (19:00)
[2018-10-03] MEDS ORDERED: MORPHINE SULF INJ 2 MG/ML SYRINGE 1ML IV PRN (19:00)
[2018-10-03] MEDS ORDERED: NITROGLYCERIN 0.4 MG SL TAB SL PRN (19:00)
[2018-10-03] MEDS ORDERED: DEXTROSE (50%) 50ML SYRG IV PRN (19:15)
[2018-10-03] MEDS: HYDROcodone-ACET 5/325MG TAB PO PRN (19:49)
[2018-10-03] MEDS: SODIUM CHLORIDE 0.9% 1,000 ML IV SCH (19:49)
--- NOTE | 2018-10-03 20:55 | NUR ---
Telemetry admit from ER JORDAN LOPEZ admitted to Telemetry unit. Patient oriented to Cheri WinterRN primary RN, unit, room, bed, and unit policies regarding patient care and visiting hours. Patient now on continuous telemetry monitoring, tele box #32 and telemetry reading on arrival to unit is Sinus Rhythm heart rate of 86. Patient placed on bedside oxygen 4L via nasal cannula. Glass catheter patent and draining. Patient alert and oriented x 4. No acute S/S of distress or SOB. Weighed by bedscale and encouraged to call if they need something. All questions and concerns addressed, patient verbalized understanding. Bed in lowest locked position, side rails up x 2, call light within reach. Will continue to monitor Q1hr and PRN. Note:
[2018-10-03 21:20] VITALS: BP 104/68
[2018-10-03] MEDS: VANCOMYCIN HCL 125MG/5ML ORAL SOL PO SCH (21:53)
[2018-10-03] MEDS: GABAPENTIN 400 MG CAP PO SCH (21:53)
[2018-10-03] MEDS: OXYBUTYNIN CHL 5 MG TAB PO SCH (21:53)
[2018-10-03] MEDS: InsuLIN REG 1unit/0.01ml Soln (100units/ml) SC SCH (21:54)
[2018-10-03] MEDS: ACCU-CHEK COMFORT CURVE STRIP VI SCH (21:54)
[2018-10-03] MEDS: INSULIN LANTUS (GLARGINE) 1 /0.01ml (100units/ml) SC SCH (21:54)
[2018-10-03] MEDS: MORPHINE SULF INJ 2 MG/ML SYRINGE 1ML IV PRN (22:12)
[2018-10-03 22:20] VITALS: BP 104/68
[2018-10-04] MEDS: MORPHINE SULF INJ 2 MG/ML SYRINGE 1ML IV PRN ×3 (02:47→16:19)
[2018-10-04] MEDS: ONDANSETRON HCL 4 MG/2 ML VIAL IV PRN ×3 (02:47→16:19)
[2018-10-04] MEDS: SODIUM CHLORIDE 0.9% 1,000 ML IV SCH ×3 (02:56→17:15)
[2018-10-04] MEDS: HYDROcodone-ACET 5/325MG TAB PO PRN ×3 (04:12→20:02)
[2018-10-04 05:10] LABS: Basophils # (auto) 0 uL; Basophils % (auto) 0.7 % (0.0-2.0); Eosinophils # (auto) 0.2 uL; Eosinophils % (auto) 2.2 % (0.0-7.0); Hematocrit 41.1 % (36.0-46.0); Hemoglobin 13.2 g/dL (12.2-16.2); Lymphocytes # (auto) 1.7 uL; Lymphocytes % (auto) 23.3 % (10.0-50.0); Mean Corpuscular Hemoglobin 28.7 pg (28.0-32.0); Mean Corpuscular Volume 89.5 fL (80.0-100.0); Monocytes # (auto) 0.5 uL; Monocytes % (auto) 6.3 % (0.0-12.0); Neutrophils % (auto) 67.5 % (37.0-80.0); Platelet Count (auto) 326 10^3/uL (140-450); Red Blood Cells 4.59 10^6/uL (4.0-5.20); White Blood Cell 7.4 10^3/uL (4.4-10.8)
[2018-10-04 05:27] LABS: Anion Gap 11 (5-15); Blood Urea Nitrogen 13 mg/dL (7-18); Calcium 8.1 mg/dL (8.5-10.1); Carbon Dioxide 19 mmol/L (21-32); Chloride 111 mmol/L (98-107); GFR African American 159 mL/min; GFR Non-African American 131 mL/min; Glucose 202 mg/dL (74-106); Potassium 4.4 mmol/L (3.5-5.1); Sodium 141 mmol/L (136-145)
[2018-10-04 05:34] VITALS: BP 147/92
[2018-10-04] MEDS: OXYBUTYNIN CHL 5 MG TAB PO SCH ×3 (05:43→22:20)
[2018-10-04] MEDS: GABAPENTIN 400 MG CAP PO SCH ×3 (05:43→22:20)
[2018-10-04] MEDS: VANCOMYCIN HCL 125MG/5ML ORAL SOL PO SCH ×4 (05:43→22:20)
[2018-10-04] MEDS: ACCU-CHEK COMFORT CURVE STRIP VI SCH ×4 (06:22→22:21)
[2018-10-04] MEDS: InsuLIN REG 1unit/0.01ml Soln (100units/ml) SC SCH ×4 (06:22→22:21)
--- NOTE | 2018-10-04 07:02 | NUR ---
Closing shift note Patient resting in bed. No acute S/S of distress or SOB noted. Bed in lowest locked position, side rails up x 2, call light within reach. Endorsed care to dayshift RN.
--- NOTE | 2018-10-04 07:45 | NUR ---
opening patient awake, in bed, bed in lowest position,call light within reach. NO distress noted at this time. WIll f/u with morning assessment UA shows 4 + leuks urine bacteria culture pending, the MDRO isn't documented on here will clarify with patient/ call infection control mrsa pending blood culture pending ct ab- L and R sided hydronephrosis supra pubic cath is pending, per urology consult with md hayes cardio consult for clearance dietary consult pending will continue to monitor this patient
[2018-10-04 09:00] VITALS: BP_SYST 120; BP_SYST 138; BP_DIAS 57; BP_DIAS 79
--- NOTE | 2018-10-04 09:30 | NUR ---
md evelyn savage, discusses antibiotics, cardio and urology consult to get the procedure taken care of in hospital
[2018-10-04] MEDS: cefTRIAXone 1GM/50ML D5W 50 ML IV SCH (09:59)
[2018-10-04] MEDS: SERTRALINE HCL 50 MG TAB PO SCH (10:00)
[2018-10-04] MEDS: FLORASTOR (S. BOULARDII) 250 MG CAP PO SCH (10:00)
[2018-10-04] MEDS: ROPINIROLE HYDROCHLORIDE 4 MG PO SCH (10:00)
[2018-10-04] MEDS: FAMOTIDINE 20 MG TAB PO SCH (10:01)
--- NOTE | 2018-10-04 11:00 | NUR ---
md meléndez rounding, and discusses stress test to be completed tomorrow, will insert 2nd IV during my shift patient agrees to procedure
[2018-10-04 13:00] VITALS: BP_SYST 120; BP_SYST 138; BP_DIAS 57; BP_DIAS 79
[2018-10-04] MEDS: ERTAPENEM SOD INJ 1 GM in SODIUM CHL 0.9% 50 ML IV SCH (13:39)
[2018-10-04 17:00] VITALS: BP 150/73
[2018-10-04] MEDS: BACLOFEN 10 MG TAB PO SCH (17:12)
--- NOTE | 2018-10-04 19:30 | NUR ---
Opening Shift Note Assumed care of patient, alert and oriented x 4. No S/S of distress/SOB or pain. Patient is on 4L oxygen via nasal cannula, on bedrest and has garcia catheter from home that was changed about a week ago per patient for complicated UTI. Bed in lowest locked position, side rails up x 2, call light within reach, Instructed on POC and to call for assist PRN, will continue to monitor for changes Q1hr and PRN.
[2018-10-04 22:03] VITALS: BP 132/71
[2018-10-04] MEDS: INSULIN LANTUS (GLARGINE) 1 /0.01ml (100units/ml) SC SCH (22:21)
[2018-10-05] MEDS: MORPHINE SULF INJ 2 MG/ML SYRINGE 1ML IV PRN ×5 (00:35→20:47)
--- NOTE | 2018-10-05 00:35 | NUR ---
IV insertion IV access obtained, via clean sterile technique by inserting 22 gauge catheter at right hand after 2 attempts. IV secured properly. No trauma to site. Patient tolerated well. NOTE:
[2018-10-05] MEDS: SODIUM CHLORIDE 0.9% 1,000 ML IV SCH ×3 (02:24→17:32)
[2018-10-05] MEDS: HYDROcodone-ACET 5/325MG TAB PO PRN ×2 (03:45→17:31)
[2018-10-05 05:33] VITALS: BP 133/73
[2018-10-05] MEDS: VANCOMYCIN HCL 125MG/5ML ORAL SOL PO SCH ×4 (05:59→21:36)
[2018-10-05] MEDS: OXYBUTYNIN CHL 5 MG TAB PO SCH ×3 (05:59→21:35)
[2018-10-05] MEDS: GABAPENTIN 400 MG CAP PO SCH ×3 (05:59→21:36)
[2018-10-05] MEDS: ACCU-CHEK COMFORT CURVE STRIP VI SCH ×4 (06:35→21:41)
[2018-10-05] MEDS: InsuLIN REG 1unit/0.01ml Soln (100units/ml) SC SCH ×4 (06:35→21:57)
--- NOTE | 2018-10-05 06:56 | NUR ---
Closing shift note Patient resting in bed. No acute S/S of distress or SOB noted. Bed in lowest locked position, side rails up x 2, call light within reach. Will endorse care to dayshift RN.
--- NOTE | 2018-10-05 07:45 | NUR ---
opening patient in bed, grimacing states her stomach hurts, review orders/emar she received pain medication "morphine" 2 hours previously, will educate patient, patient is still npo prior to stress lab, no other complaints at this time. Will follow up with morning assessment per noc nurse she now has a second IV R hand 22 gauge for stress test. Will continue to monitor this patient
--- NOTE | 2018-10-05 07:51 | NUR ---
call from stress lab they told me patient should remain npo and get ready for the test to begin within the next 1.5 hours
[2018-10-05 08:00] VITALS: BP 157/71
[2018-10-05] MEDS ORDERED: ADENOSINE 46 MG in GIVE UN-DILUTED 0 ML IV STA (08:16)
--- NOTE | 2018-10-05 08:22 | NUR ---
nurse note had nurses aid give patient a heat back per her abdominal pain, however patient refuses the heat pack and only wants pain medication. All medication have been given at this time, will consult with primary MD, and educate this patient about current status of medication times.
[2018-10-05] MEDS: cefTRIAXone 1GM/50ML D5W 50 ML IV SCH (09:24)
[2018-10-05] MEDS: ONDANSETRON HCL 4 MG/2 ML VIAL IV PRN ×2 (09:24→21:35)
[2018-10-05] MEDS: ERTAPENEM SOD INJ 1 GM in SODIUM CHL 0.9% 50 ML IV SCH (09:24)
[2018-10-05] MEDS: FAMOTIDINE 20 MG TAB PO SCH (09:25)
[2018-10-05] MEDS: ROPINIROLE HYDROCHLORIDE 4 MG PO SCH (09:25)
[2018-10-05] MEDS: SERTRALINE HCL 50 MG TAB PO SCH (09:25)
[2018-10-05] MEDS: FLORASTOR (S. BOULARDII) 250 MG CAP PO SCH (09:25)
--- NOTE | 2018-10-05 12:09 | NUR ---
Nutrition consult/assessment Notes please see attached link for complete assessment Est. Needs BW 54 [id number] kcal (25-30 kcal/kgBW), 54-64 gms pro (1.0-1.2 gms/kgBW). Will continue to monitor pertinent labs and reassess nutrient need prn. Addendum: 10/05/18 at [address] Amended: Links added.
--- NOTE | 2018-10-05 12:36 | NUR ---
notifying pharmacy patient is currently in stress lab, per pharmacy keep the vancomycin at the same time that is ordered and just give as soon as possible
--- NOTE | 2018-10-05 14:15 | NUR ---
dr rika savage, states the patient is cleared for procedure stress test negative
--- NOTE | 2018-10-05 14:34 | NUR ---
paging dr hayes (urology) left a message on answering service to get next POC regarding possible procedure (suprapubic catheter)
[2018-10-05 14:35] LABS: INR 1.01 (0.9-1.15)
[2018-10-05 16:57] VITALS: BP 132/81
[2018-10-05] MEDS: BACLOFEN 10 MG TAB PO SCH (17:31)
--- NOTE | 2018-10-05 19:30 | NUR ---
Opening Shift Note Assumed care of patient, awake and alert. No S/S of distress/SOB. Pt reports pain will medicate per MD order. Instructed on POC and to call for assist PRN, will continue to monitor for changes Q1hr and PRN.
--- NOTE | 2018-10-05 20:00 | NUR ---
IV removal IV DC'd on left Thumb 22g with clean sterile technique, catheter fully intact. Pressure dressing applied to site. Patient tolerated well. NOTE:
[2018-10-05] MEDS: INSULIN LANTUS (GLARGINE) 1 /0.01ml (100units/ml) SC SCH (21:57)
--- NOTE | 2018-10-06 00:09 | NUR ---
PAGED HOSPITALIST Pt complaining of pt stating current pain med is not helping, will continue to monitor pt
[2018-10-06 00:33] VITALS: BP 136/74
--- NOTE | 2018-10-06 00:42 | NUR ---
HOSPITALIST CALL BACK TELEPHONE ORDER Morphine 4 mg IV x ONE Addendum: 10/06/18 at 0149 by KERI HERNANDEZ RN RN Incorrect
[2018-10-06] MEDS ORDERED: MORPHINE SULFATE 4 MG/ML SYR/VIAL IV ONE (01:00)
[2018-10-06] MEDS: MORPHINE SULF INJ 2 MG/ML SYRINGE 1ML IV PRN ×5 (02:00→21:54)
[2018-10-06] MEDS: SODIUM CHLORIDE 0.9% 1,000 ML IV SCH ×3 (02:56→18:59)
[2018-10-06] MEDS: ONDANSETRON HCL 4 MG/2 ML VIAL IV PRN ×4 (04:08→23:14)
[2018-10-06] MEDS: HYDROcodone-ACET 5/325MG TAB PO PRN ×2 (04:14→20:23)
[2018-10-06 05:37] VITALS: BP 100/89
[2018-10-06 05:51] LABS: Basophils # (auto) 0 uL; Basophils % (auto) 0.4 % (0.0-2.0); Eosinophils # (auto) 0.2 uL; Eosinophils % (auto) 1.8 % (0.0-7.0); Hematocrit 41.6 % (36.0-46.0); Hemoglobin 13.8 g/dL (12.2-16.2); Lymphocytes # (auto) 1.5 uL; Lymphocytes % (auto) 17.2 % (10.0-50.0); Mean Corpuscular Hemoglobin 29.6 pg (28.0-32.0); Mean Corpuscular Hgb Conc. 33.3 g/dL (32.0-36.0); Mean Corpuscular Volume 89.1 fL (80.0-100.0); Monocytes # (auto) 0.5 uL; Monocytes % (auto) 5.3 % (0.0-12.0); Neutrophils # (auto) 6.4 uL; Neutrophils % (auto) 75.3 % (37.0-80.0); Platelet Count (auto) 322 10^3/uL (140-450); Red Blood Cells 4.67 10^6/uL (4.0-5.20); Red Cell Distribution Width 15.9 % (11.8-14.3); White Blood Cell 8.6 10^3/uL (4.4-10.8)
[2018-10-06] MEDS: OXYBUTYNIN CHL 5 MG TAB PO SCH ×3 (06:02→21:53)
[2018-10-06] MEDS: GABAPENTIN 400 MG CAP PO SCH ×3 (06:03→21:52)
[2018-10-06] MEDS: VANCOMYCIN HCL 125MG/5ML ORAL SOL PO SCH (06:03)
[2018-10-06] MEDS: InsuLIN REG 1unit/0.01ml Soln (100units/ml) SC SCH ×4 (06:12→21:53)
[2018-10-06] MEDS: ACCU-CHEK COMFORT CURVE STRIP VI SCH ×4 (06:12→21:53)
[2018-10-06 06:18] LABS: Potassium 4.4 mmol/L (3.5-5.1)
[2018-10-06 06:24] LABS: BUN/Creatinine Ratio 17.4; Calcium 9.2 mg/dL (8.5-10.1); Magnesium 2.1 mg/dL (1.6-2.6)
--- NOTE | 2018-10-06 07:20 | NUR ---
CLOSING NOTE Report endorsed to day YANET Miller, pt awake, no s/sx's of distress or sob noted.
[2018-10-06 08:00] VITALS: BP 126/87
[2018-10-06] MEDS: cefTRIAXone 1GM/50ML D5W 50 ML IV SCH (08:42)
[2018-10-06] MEDS: ROPINIROLE HYDROCHLORIDE 4 MG PO SCH (09:59)
[2018-10-06] MEDS: ERTAPENEM SOD INJ 1 GM in SODIUM CHL 0.9% 50 ML IV SCH (09:59)
[2018-10-06] MEDS: FAMOTIDINE 20 MG TAB PO SCH (10:00)
[2018-10-06] MEDS: FLORASTOR (S. BOULARDII) 250 MG CAP PO SCH (10:00)
[2018-10-06] MEDS: SERTRALINE HCL 50 MG TAB PO SCH (10:00)
[2018-10-06] MEDS ORDERED: VANCOMYCIN PER PHARMACY 0 MG IV SCH (10:15)
[2018-10-06] MEDS: FLUCONAZOLE 200MG/100ML 100 ML IV SCH (10:15)
[2018-10-06] MEDS ORDERED: SENNA 8.6 MG TAB PO PRN (11:00)
[2018-10-06] MEDS ORDERED: VANCOMYCIN 1GM/250ML 250 ML IV ONE (11:30)
[2018-10-06 12:00] VITALS: BP 151/88
[2018-10-06 17:00] VITALS: BP 152/80
[2018-10-06] MEDS: BACLOFEN 10 MG TAB PO SCH (18:57)
--- NOTE | 2018-10-06 19:25 | NUR ---
Opening Shift Note Received report from Paul HOLT. Assumed care of patient, awake and alert. No S/S of distress/SOB. Report pain 7/10 on low back and R leg, medication will be given once due. Instructed on POC and to call for assist PRN. Bed in lowest position, side rails up x2, bed alarm on, call light and belongings within reach. Will continue to monitor for changes Q1hr and PRN.
[2018-10-06] MEDS: DOCUSATE SOD 100 MG CAP PO SCH (21:52)
[2018-10-06] MEDS: INSULIN LANTUS (GLARGINE) 1 /0.01ml (100units/ml) SC SCH (21:53)
[2018-10-06 22:00] VITALS: BP 110/57
[2018-10-07] MEDS: SODIUM CHLORIDE 0.9% 1,000 ML IV SCH ×2 (03:15→10:56)
[2018-10-07] MEDS: MORPHINE SULF INJ 2 MG/ML SYRINGE 1ML IV PRN ×4 (04:04→17:04)
[2018-10-07 04:47] VITALS: BP 139/71
[2018-10-07] MEDS: InsuLIN REG 1unit/0.01ml Soln (100units/ml) SC SCH ×3 (06:24→17:00)
[2018-10-07] MEDS: GABAPENTIN 400 MG CAP PO SCH ×2 (06:24→14:46)
[2018-10-07] MEDS: ACCU-CHEK COMFORT CURVE STRIP VI SCH ×3 (06:24→17:00)
[2018-10-07] MEDS: OXYBUTYNIN CHL 5 MG TAB PO SCH ×2 (06:24→14:46)
[2018-10-07] MEDS: HYDROcodone-ACET 5/325MG TAB PO PRN ×2 (06:25→14:49)
--- NOTE | 2018-10-07 07:20 | NUR ---
Open Shift Note Received report on patient, awake and sitting up in bed. Patient states she has chronic back pain. Discussed PRN pain medications with patient as well as POC. Patient shows no signs of distress at this time. Bed in lowest locked position, side rails up x2 and call light within reach. Will continue to monitor.
--- NOTE | 2018-10-07 07:31 | NUR ---
Patient still with moderate pain, vitals stable, no sob or distress. Endorsed care to Rebecca HOLT.
[2018-10-07 07:33] LABS: Basophils # (auto) 0 uL; Basophils % (auto) 0.4 % (0.0-2.0); Eosinophils # (auto) 0.2 uL; Eosinophils % (auto) 2.2 % (0.0-7.0); Hematocrit 40.7 % (36.0-46.0); Hemoglobin 13.2 g/dL (12.2-16.2); Lymphocytes # (auto) 1.7 uL; Lymphocytes % (auto) 22.1 % (10.0-50.0); Mean Corpuscular Hgb Conc. 32.5 g/dL (32.0-36.0); Mean Corpuscular Volume 89.1 fL (80.0-100.0); Monocytes # (auto) 0.5 uL; Monocytes % (auto) 6.8 % (0.0-12.0); Neutrophils # (auto) 5.2 uL; Neutrophils % (auto) 68.5 % (37.0-80.0); Nucleated Red Blood Cells % 0.1 %; Platelet Count (auto) 303 10^3/uL (140-450); Red Blood Cells 4.57 10^6/uL (4.0-5.20); Red Cell Distribution Width 15.6 % (11.8-14.3); White Blood Cell 7.6 10^3/uL (4.4-10.8)
[2018-10-07 07:51] LABS: Anion Gap 8 (5-15); BUN/Creatinine Ratio 19.6; Blood Urea Nitrogen 9 mg/dL (7-18); Calcium 8.4 mg/dL (8.5-10.1); Carbon Dioxide 25 mmol/L (21-32); Chloride 111 mmol/L (98-107); GFR African American 175 mL/min; GFR Non-African American 144 mL/min; Glucose 187 mg/dL (74-106); Magnesium 1.9 mg/dL (1.6-2.6); Potassium 4.2 mmol/L (3.5-5.1); Sodium 144 mmol/L (136-145)
[2018-10-07] MEDS: ONDANSETRON HCL 4 MG/2 ML VIAL IV PRN ×3 (08:16→17:03)
[2018-10-07 09:00] VITALS: BP 141/67
[2018-10-07] MEDS: FAMOTIDINE 20 MG TAB PO SCH (09:44)
[2018-10-07] MEDS: FLUCONAZOLE 200MG/100ML 100 ML IV SCH (09:44)
[2018-10-07] MEDS: FLORASTOR (S. BOULARDII) 250 MG CAP PO SCH (09:44)
[2018-10-07] MEDS: SERTRALINE HCL 50 MG TAB PO SCH (09:45)
[2018-10-07] MEDS: DOCUSATE SOD 100 MG CAP PO SCH (09:45)
[2018-10-07] MEDS: ROPINIROLE HYDROCHLORIDE 4 MG PO SCH (09:47)
[2018-10-07] MEDS ORDERED: hydrALAZINE HCL 20 MG/ML VL IV ONE (12:00)
[2018-10-07] MEDS ORDERED: HCTZ 25 MG TAB PO ONE (12:00)
[2018-10-07] MEDS ORDERED: VANCOMYCIN 750 MG in D5W 5% 250 ML IV SCH (12:00)
[2018-10-07 13:00] VITALS: BP 153/81
--- NOTE | 2018-10-07 13:16 | NUR ---
Patient Can Be Discharged if Systolic Blood Pressure under [address] Blanca patient can be discharged once systolic blood pressure is maintained under 160. Patient's blood pressure now after ordered medication is 114/60. Patient states their family member cannot pick them up until after 1600. Will continue to monitor.
--- NOTE | 2018-10-07 15:49 | NUR ---
Faxed Meche Oleary from case management stated patient has been reaccepted through [facility]. Face sheet, H & P and home health orders were faxed to [facility]. [facility] , Care will begin 24-48hours post discharge.
[2018-10-07 15:51] VITALS: BP 114/66
[2018-10-07 17:00] VITALS: BP 121/70
[2018-10-07] MEDS: BACLOFEN 10 MG TAB PO SCH (17:37)
--- NOTE | 2018-10-07 18:40 | NUR ---
Discharged Discharge instructions given as ordered. Encourage to follow up with PMD on Monday as instructed. All questions and concerns addressed. Patient verbalized understanding. Prescriptions given to patient. IV removed with catheter intact, pressure dressing applied. Telemetry unit returned to [facility]. Patient taken to vehicle via wheelchair with all personal belongings, accompanied by staff and family member. No distress noted at time of departure.
--- NOTE | 2018-10-08 10:41 | NUR ---
I called [employer] Stain [employer]over Josee to request authorization number for [facility], she will call me back.
--- NOTE | 2018-10-09 08:27 | NUR ---
CHOICE authorization number for [facility] is [id number] to send auth to [facility].
== END 2018-10-07 18:38 | disposition home health service (06) | DRG 698 ==
LOC: EDBD 15:18 → ER 15:21 → TELE 15:22 → TELE-CENTR 21:01
PROVIDERS: ADMIT Nurse Practitioner Acute Care; ATTEND Internal Medicine
DX: T83.511A Infection and inflammatory reaction due to indwelling urethral catheter, initial encounter (principal); A41.9 Sepsis, unspecified organism; N13.6 Pyonephrosis; I25.10 Atherosclerotic heart disease of native coronary artery without angina pectoris; E11.9 Type 2 diabetes mellitus without complications; F41.9 Anxiety disorder, unspecified; F51.04 Psychophysiologic insomnia; G62.9 Polyneuropathy, unspecified; G89.4 Chronic pain syndrome; I10 Essential (primary) hypertension; I48.91 Unspecified atrial fibrillation; I70.8 Atherosclerosis of other arteries; J44.9 Chronic obstructive pulmonary disease, unspecified; K21.9 Gastro-esophageal reflux disease without esophagitis; K59.00 Constipation, unspecified; N21.0 Calculus in bladder; R32 Unspecified urinary incontinence; R19.7 Diarrhea, unspecified; B95.2 Enterococcus as the cause of diseases classified elsewhere; I25.2 Old myocardial infarction; Z79.02 Long term (current) use of antithrombotics/antiplatelets; Z79.4 Long term (current) use of insulin; Z81.8 Family history of other mental and behavioral disorders; Z82.49 Family history of ischemic heart disease and other diseases of the circulatory system; Z82.5 Family history of asthma and other chronic lower respiratory diseases; Z83.3 Family history of diabetes mellitus; Z87.440 Personal history of urinary (tract) infections; Z87.891 Personal history of nicotine dependence; Z88.8 Allergy status to other drugs, medicaments and biological substances; Z90.49 Acquired absence of other specified parts of digestive tract; Z79.899 Other long term (current) drug therapy
CPT/HCPCS: 36415; 71045; 74176; 78452; 80048; 80053; 81001; 82150; 82962; 83690; 83735; 85025; 85610; 85730; 87081; 87086; 87088; 87186; 93005; 93017; 94761; 96361; 96365; 96367; 96375; G0378; J0153; J0696; J1335; J1450; J1815; J2405; J3490; J7060

== ENCOUNTER 2018-12-06 21:08 | Emergency (ER) | payer OTHER ==
[~2018-12-06] VITALS: Ht 162.6 cm; Wt 54.4 kg
[~2018-12-06 21:08] MED LIST changes: -HYDR-4683 PO; +HYDR-4833 PO; -LEVO500T21 PO; -SERT-138 PO; +SERT50TA PO
[2018-12-06] MEDS ORDERED: HYDROcodone-ACET 10/325MG TAB PO ONE (22:15)
[2018-12-06] MEDS ORDERED: HYDROcodone-ACET 5/325MG TAB PO ONE (23:15)
[2018-12-06 23:29] LABS: Urine Bacteria MANY /hpf (None Seen); Urine Blood 2+ /uL (Negative); Urine Budding Yeast MANY /hpf (None Seen); Urine Mucus FEW (None Seen); Urine Specific Gravity 1.021 (1.001-1.035); Urine WBC 350 /hpf (0 - 5); Urine WBC Clumps PRESENT /hpf (None Seen)
[2018-12-07] MEDS ORDERED: cefTRIAXone SOD 1,000 MG VL ONE (01:26)
[2018-12-07] MEDS ORDERED: LIDOCAINE 1% HCL (LOCAL ANESTH.) INJ 20ML MDV ONE (01:26)
[2018-12-07] MEDS ORDERED: cefTRIAXone W LIDOCAINE 1 GM IM IM ONE (01:30)
[2018-12-07] MEDS ORDERED: LIDOCAINE 1% HCL (LOCAL ANESTH.) INJ 20ML MDV IJ ONE (01:45)
[2018-12-07 03:00] VITALS: BP 153/59
== END 2018-12-07 03:09 | disposition home or self-care (01) ==
LOC: EDBD 21:08 → ER 21:14
DX: N39.0 Urinary tract infection, site not specified (principal); K21.9 Gastro-esophageal reflux disease without esophagitis; E11.9 Type 2 diabetes mellitus without complications; I25.2 Old myocardial infarction; Z88.6 Allergy status to analgesic agent; Z88.8 Allergy status to other drugs, medicaments and biological substances; Z90.89 Acquired absence of other organs
CPT/HCPCS: 51702; 81001; 96372; 99284; J0696; J2001

== ENCOUNTER 2019-01-29 11:26 | Inpatient (IN) | payer OTHER ==
[~2019-01-29] VITALS: Ht 165.1 cm; Wt 56.7 kg
[2019-01-29] MEDS ORDERED: SODIUM CHLORIDE 0.9% 500 ML IVB ONE (11:42)
[2019-01-29] MEDS ORDERED: MORPHINE SULFATE 4 MG/ML SYR/VIAL IV ONE (11:45)
[2019-01-29] MEDS ORDERED: ONDANSETRON HCL 4 MG/2 ML VIAL IV ONE (11:45)
[2019-01-29 12:33] LABS: Basophils # (auto) 0 uL; Basophils % (auto) 0.3 % (0.0-2.0); Eosinophils # (auto) 0.1 uL; Hematocrit 41.6 % (36.0-46.0); Hemoglobin 13.8 g/dL (12.2-16.2); Lymphocytes # (auto) 1.6 uL; Lymphocytes % (auto) 16.4 % (10.0-50.0); Mean Corpuscular Hemoglobin 29.3 pg (28.0-32.0); Mean Corpuscular Hgb Conc. 33.1 g/dL (32.0-36.0); Mean Corpuscular Volume 88.4 fL (80.0-100.0); Monocytes # (auto) 0.4 uL; Monocytes % (auto) 4.4 % (0.0-12.0); Neutrophils # (auto) 7.7 uL; Neutrophils % (auto) 77.9 % (37.0-80.0); Platelet Count (auto) 356 10^3/uL (140-450); White Blood Cell 9.9 10^3/uL (4.4-10.8)
[2019-01-29 13:04] LABS: Alkaline Phosphatase 136 U/L (45-117); Anion Gap 9 (5-15); Aspartate Aminotransferase 25 U/L (15-37); BUN/Creatinine Ratio 18.6; Blood Urea Nitrogen 11 mg/dL (7-18); Carbon Dioxide 26 mmol/L (21-32); Chloride 103 mmol/L (98-107); GFR African American 131 mL/min; GFR Non-African American 108 mL/min; Glucose 196 mg/dL (74-106); Potassium 4.8 mmol/L (3.5-5.1); Sodium 138 mmol/L (136-145)
[2019-01-29 13:05] LABS: Alanine Aminotransferase 21 U/L (13-56); Albumin 3.5 g/dL (3.4-5.0); Bilirubin, Total 0.5 mg/dL (0.2-1.0); Calcium 9.4 mg/dL (8.5-10.1); Lipase 35 U/L (73-393); Total Protein 8.2 g/dL (6.4-8.2)
[2019-01-29 13:59] LABS: Urine Bacteria MOD /hpf (None Seen); Urine Blood 2+ /uL (Negative); Urine Mucus FEW (None Seen); Urine Specific Gravity 1.017 (1.001-1.035); Urine WBC 324 /hpf (0 - 5); Urine WBC Clumps PRESENT /hpf (None Seen)
[2019-01-29] MEDS ORDERED: NITROGLYCERIN 0.4 MG SL TAB SL PRN (14:45)
[2019-01-29] MEDS ORDERED: MORPHINE SULF INJ 2 MG/ML SYRINGE 1ML IV PRN (14:45)
--- NOTE | 2019-01-29 16:10 | NUR ---
Med/surg admit from ER JESSICAJORDAN admitted to Med/surg unit after SBAR received. Patient oriented to BERNICE CATALAN RN primary RN, unit, room, bed, and unit policies regarding patient care and visiting hours. Patient placed on bedside oxygen, weighed by bedscale and encouraged to call if they need something. All questions and concerns addressed, patient verbalized understanding.
[2019-01-29 17:05] VITALS: BP 123/65
[2019-01-29] MEDS: ONDANSETRON HCL 4 MG/2 ML VIAL IV PRN ×2 (17:26→22:38)
[2019-01-29] MEDS: MORPHINE SULF INJ 2 MG/ML SYRINGE 1ML IV PRN ×2 (17:27→22:38)
--- NOTE | 2019-01-29 19:30 | NUR ---
Opening Shift Note Assumed care of patient, awake and alert. No S/S of distress/SOB or pain. Instructed on POC and to call for assist PRN, will continue to monitor for changes Q1hr and PRN. Patient had a bowel movement.
[2019-01-29 22:29] VITALS: BP 159/77
--- NOTE | 2019-01-29 23:15 | NUR ---
Barbara Blanca about patient's multiple bowl movements. Telephone orders for c-dif stool culture, and stool leukocytes. Repeated orders to verify. Will follow as order.
[2019-01-30] MEDS: ACETAMINOPHEN 325 MG TAB PO PRN ×2 (00:33→20:04)
[2019-01-30] MEDS: ONDANSETRON HCL 4 MG/2 ML VIAL IV PRN ×3 (03:06→15:00)
[2019-01-30] MEDS: MORPHINE SULF INJ 2 MG/ML SYRINGE 1ML IV PRN ×3 (03:06→15:00)
[2019-01-30 05:11] VITALS: BP 150/70
[2019-01-30] MEDS: HYDROcodone-ACET 5/325MG TAB PO PRN ×2 (06:15→17:55)
[2019-01-30 06:34] LABS: Basophils # (auto) 0 uL; Basophils % (auto) 0.5 % (0.0-2.0); Eosinophils # (auto) 0.1 uL; Eosinophils % (auto) 1.4 % (0.0-7.0); Hematocrit 38.6 % (36.0-46.0); Hemoglobin 12.7 g/dL (12.2-16.2); Lymphocytes # (auto) 1.9 uL; Lymphocytes % (auto) 21.6 % (10.0-50.0); Mean Corpuscular Hemoglobin 29.1 pg (28.0-32.0); Mean Corpuscular Hgb Conc. 32.9 g/dL (32.0-36.0); Mean Corpuscular Volume 88.5 fL (80.0-100.0); Monocytes # (auto) 0.5 uL; Monocytes % (auto) 5.1 % (0.0-12.0); Neutrophils # (auto) 6.4 uL; Neutrophils % (auto) 71.4 % (37.0-80.0); Nucleated Red Blood Cells % 0.1 %; Platelet Count (auto) 339 10^3/uL (140-450); Red Blood Cells 4.36 10^6/uL (4.0-5.20); Red Cell Distribution Width 15.1 % (11.8-14.3); White Blood Cell 8.9 10^3/uL (4.4-10.8)
[2019-01-30 06:48] LABS: Albumin 3.1 g/dL (3.4-5.0); Calcium 8.7 mg/dL (8.5-10.1); Potassium 4.4 mmol/L (3.5-5.1)
[2019-01-30 06:50] LABS: BUN/Creatinine Ratio 23.9
[2019-01-30 06:52] LABS: Bilirubin, Total 0.3 mg/dL (0.2-1.0); Total Protein 7.3 g/dL (6.4-8.2)
--- NOTE | 2019-01-30 07:18 | NUR ---
Opening Shift Note Assumed care of patient, awake and alert. No S/S of distress/SOB or pain. Instructed on POC and to call for assist PRN, will continue to monitor for changes Q1hr and PRN.
[2019-01-30 09:00] VITALS: BP 181/89
[2019-01-30] MEDS: cefTRIAXone 1GM/50ML D5W 50 ML IV SCH (10:01)
--- NOTE | 2019-01-30 11:00 | NUR ---
ROUNDING MD DENNIS AT BEDSIDE. ALL QUESTIONS AND CONCERNS ADDRESSED AT THIS TIME
[2019-01-30] MEDS ORDERED: DEXTROSE (50%) 50ML SYRG IV PRN (11:15)
--- NOTE | 2019-01-30 11:20 | NUR ---
ROUNDING MD VALENZUELA AT BEDSIDE. ALLQUESTIONS AND CONCERNS ADDRESSED AT THIS TIME
[2019-01-30] MEDS: InsuLIN REG 1unit/0.01ml Soln (100units/ml) SC SCH ×3 (11:45→21:58)
[2019-01-30] MEDS: ACCU-CHEK COMFORT CURVE STRIP VI SCH ×3 (11:45→21:53)
--- NOTE | 2019-01-30 12:38 | NUR ---
NUTRITION CONSULT/ASSESSMENT NOTES Please refer to link notes of nutrition screen form filed under the intervention section of the plan of care for further details. Est. Needs: 1700 kcal to 2000 kcal (30-35 kcal/kgBW), 57 gms to 70 gms pro (1.0-1.2 gms/kgBW). Will continue to monitor pertinent labs and reassess nutrient need prn Thank you for this consult. Addendum: 01/30/19 at [address] Amended: Links added.
[2019-01-30 13:00] VITALS: BP 164/98
--- NOTE | 2019-01-30 14:32 | NUR ---
PT REQUIRES 20FR ARNOLD CATHETER ACCORDING TO THE PT SHE CAN ONLY HAVE A 20FR ARNOLD INSERTED DUE TO BLADDER ISSUES. SHE CURRENTLY HAS A 20FR INSERTED. THERE ARE NO 20FR CATHETERS IN STOCK UP IN OUR SUPPLY [facility], SO I CALLED CLAIMS CUSTOMER SERVICE REPRESENTATIVE FOR LOCATION ON ONE. ACCORDING TO THE CLAIMS CUSTOMER SERVICE REPRESENTATIVE DAMARIS THERE ARE NO 20FR CATHETERS IN STOCK AT THE MOMENT AND SHE HAS CONTACTED [employer] TO SEE IF THERE IS ONE AT THE OTHER LOCATIONS. AWATING CALL BACK
[2019-01-30] MEDS: GABAPENTIN 400 MG CAP PO SCH ×2 (14:59→21:49)
--- NOTE | 2019-01-30 16:07 | NUR ---
PAGED RE: PT WANTING TO KNOW IF SHE CAN HAVE SOMETHING FOR SLEEP. NEW ORDERS RECEIVED/
[2019-01-30 17:00] VITALS: BP 165/87
--- NOTE | 2019-01-30 17:00 | NUR ---
Garcia catheter dc'd Order to discontinue HOME garcia catheter. Garcia dc'd with clean technique following deflation of balloon. Patient tolerated well with no complaints of pain. Continue care.
--- NOTE | 2019-01-30 17:15 | NUR ---
Garcia catheter insertion Patient assessed and determined to be in need of garcia catheter. Order obtained from SONNY FERRO. Patient educated on catheter and reason for insertion. All questions answered. Garcia catheter 20 guage Finnish inserted with clean sterile technique. Patient tolerated well.
--- NOTE | 2019-01-30 20:00 | NUR ---
RECEIVE IN BED IS CONVERSANT IS WATCHING TV
[2019-01-30] MEDS: traZODone HCL 50 MG TAB PO SCH (21:49)
[2019-01-30] MEDS: ZOLPIDEM TARTRATE 5 MG TAB PO PRN (21:49)
[2019-01-30 22:00] VITALS: BP 149/72
[2019-01-31 05:00] VITALS: BP 149/70
[2019-01-31] MEDS: HYDROcodone-ACET 5/325MG TAB PO PRN ×2 (05:11→13:23)
[2019-01-31] MEDS: GABAPENTIN 400 MG CAP PO SCH ×3 (06:16→22:17)
[2019-01-31] MEDS: ACCU-CHEK COMFORT CURVE STRIP VI SCH ×4 (06:20→22:18)
[2019-01-31] MEDS: InsuLIN REG 1unit/0.01ml Soln (100units/ml) SC SCH ×4 (06:29→22:17)
[2019-01-31 08:50] VITALS: BP 105/60
[2019-01-31] MEDS: MORPHINE SULF INJ 2 MG/ML SYRINGE 1ML IV PRN ×3 (10:29→20:29)
[2019-01-31] MEDS: SERTRALINE HCL 50 MG TAB PO SCH (10:29)
[2019-01-31] MEDS: cefTRIAXone 1GM/50ML D5W 50 ML IV SCH (10:29)
--- NOTE | 2019-01-31 10:30 | NUR ---
WOUND CARE NOTE: IN TO SEE PATIENT AT THIS TIME FOR SKIN INTEGRITY. PATIENT WAS ADMITTED TO REPLACED BY [facility] WITH DIAGNOSIS OF ABD PAIN. PATIENT IS NOW POSITIVE FOR C-DIFF. SHE HAS BEEN HAVING MULTIPLE BOUTS WITH INCONTINENT LOOSE STOOL, RENDERING HER WITH MASD TO THE PERIANAL/PERINEAL SKIN. WOUND PHOTO WAS TAKEN UPON ADMIT, BY BEDSIDE NURSE FOR REFERENCE. SKIN REMAINS INTACT, ERYTHEMIC. SHE IS RECEIVING BID APPLICATIONS WITH ZGUARD TO THE SKIN. CURRENT MENDEZ SCORE IS 13. PATIENT CAN SELF TURN/REPOSITION SELF. RECOMMEND: SKIN/WOUND CARE PLAN, FREQUENT PERICARE GIVEN WITH EACH EPISODE OF INCONTINENT STOOL, BID/PRN APPLICATION WITH ZGUARD, CONTINUED MONITORING BY WOUND CARE TEAM. Addendum: 01/31/19 at 1638 by Ann-Marie Owens RN Amended: Links added.
--- NOTE | 2019-01-31 10:48 | NUR ---
BRENDA VALENZUELA RE: POSITIVE C-DIFF TEST RESULTS FOR STOOL.
[2019-01-31] MEDS: ONDANSETRON HCL 4 MG/2 ML VIAL IV PRN ×3 (10:52→20:35)
[2019-01-31 13:00] VITALS: BP 122/63
[2019-01-31 17:00] VITALS: BP 154/79
[2019-01-31] MEDS: VANCOMYCIN HCL 125MG/5ML ORAL SOL PO SCH ×2 (18:00→22:25)
[2019-01-31] MEDS ORDERED: VANCOMYCIN HCL 125MG/5ML ORAL SOL PO SCH (18:00)
[2019-01-31] MEDS: ACETAMINOPHEN 325 MG TAB PO PRN (18:45)
--- NOTE | 2019-01-31 20:00 | NUR ---
RECEIVE IN BED CONTACT ISOLATION IS MAINTAINED STATES SHE CAN'T GO HOME WITH C DIFF
[2019-01-31 21:00] VITALS: BP 121/64
[2019-01-31] MEDS: traZODone HCL 50 MG TAB PO SCH (22:16)
[2019-01-31] MEDS: ZOLPIDEM TARTRATE 5 MG TAB PO PRN (23:12)
[2019-02-01] MEDS: MORPHINE SULF INJ 2 MG/ML SYRINGE 1ML IV PRN ×4 (03:56→18:21)
[2019-02-01] MEDS: ONDANSETRON HCL 4 MG/2 ML VIAL IV PRN ×4 (04:28→18:21)
[2019-02-01 05:11] VITALS: BP 132/66
[2019-02-01] MEDS: VANCOMYCIN HCL 125MG/5ML ORAL SOL PO SCH ×4 (06:00→21:58)
[2019-02-01] MEDS: GABAPENTIN 400 MG CAP PO SCH ×3 (06:32→21:56)
[2019-02-01] MEDS: ACCU-CHEK COMFORT CURVE STRIP VI SCH ×4 (06:33→21:58)
[2019-02-01] MEDS: InsuLIN REG 1unit/0.01ml Soln (100units/ml) SC SCH ×4 (06:40→21:58)
[2019-02-01 08:00] VITALS: BP 150/82
--- NOTE | 2019-02-01 08:10 | NUR ---
Opening Shift Note Assumed care of patient, awake and alert. No S/S of distress/SOB. Patient reports 10/10 pain in her stomach, back, and legs. Patient reports nausea. Patient will be medicated for pain and nausea per MD order. Catheter care done and perineum cleansed and Z guard applied to area of redness in perineum. Instructed on POC and to call for assist PRN, will continue to monitor for changes Q1hr and PRN.
[2019-02-01 09:00] VITALS: BP 150/82
[2019-02-01] MEDS: SERTRALINE HCL 50 MG TAB PO SCH (09:00)
[2019-02-01] MEDS: cefTRIAXone 1GM/50ML D5W 50 ML IV SCH (09:00)
[2019-02-01] MEDS: ACETAMINOPHEN 325 MG TAB PO PRN (12:12)
[2019-02-01 13:00] VITALS: BP 160/82
[2019-02-01] MEDS: FLUCONAZOLE 200MG/100ML 100 ML IV SCH (14:12)
--- NOTE | 2019-02-01 15:40 | NUR ---
PATIENT REQUESTING HOME MEDICATION. MD AWARE. NEW ORDER RECEIVED. ORDER READ BACK AND VERIFIED.
[2019-02-01] MEDS ORDERED: SUCR1TAB38 PO (15:54)
[2019-02-01 17:00] VITALS: BP 148/70
[2019-02-01] MEDS: SUCRALFATE 1 GM TAB PO SCH ×2 (17:10→21:56)
--- NOTE | 2019-02-01 18:49 | NUR ---
CLOSING NOTE Patient is awake and alert. No S/S of distress/SOB or pain. Bed locked in the lowest position. Bed rails up x2. Call light in reach. Will endorse care to night nurse.
--- NOTE | 2019-02-01 19:35 | NUR ---
Pt is awake and alert. No s/s of pain, distress, or SOB. Pt informed to call for assistance. Call light is within reach. Pt is informed on POC. Bed is in low position. Side rails are up x2. Wheels are locked. Signed: 02/02/19 at 0550 by SN Wan <Co-Signature Required> Co-Signed: 02/02/19 at 0550 by RYLAN WARNER RN
[2019-02-01 21:00] VITALS: BP 149/73
[2019-02-01] MEDS: ZOLPIDEM TARTRATE 5 MG TAB PO PRN (21:54)
[2019-02-01] MEDS: traZODone HCL 50 MG TAB PO SCH (21:55)
[2019-02-01] MEDS: HYDROcodone-ACET 5/325MG TAB PO PRN (21:56)
[2019-02-02 05:07] VITALS: BP 143/67
[2019-02-02] MEDS: GABAPENTIN 400 MG CAP PO SCH ×3 (06:37→21:05)
[2019-02-02] MEDS: HYDROcodone-ACET 5/325MG TAB PO PRN ×3 (06:38→18:09)
[2019-02-02] MEDS: VANCOMYCIN HCL 125MG/5ML ORAL SOL PO SCH ×4 (06:39→21:07)
[2019-02-02] MEDS: InsuLIN REG 1unit/0.01ml Soln (100units/ml) SC SCH ×4 (06:40→21:07)
[2019-02-02] MEDS: SUCRALFATE 1 GM TAB PO SCH ×4 (06:41→21:05)
[2019-02-02] MEDS: ACCU-CHEK COMFORT CURVE STRIP VI SCH ×4 (06:41→21:07)
--- NOTE | 2019-02-02 06:59 | NUR ---
CLOSING NOTE Pt is alert and awake. No S/S of SOB or distress. Pt stated pain 12/11. Hydrocodone 5/325 MG tab administered per order. Bed locked and in lowest position. Side rails up x2. Call light in reach. Signed: 02/02/19 at 700 by SN Wan <Co-Signature Required> Co-Signed: 02/02/19 at 700 by RYLAN WARNER RN
[2019-02-02] MEDS: MORPHINE SULF INJ 2 MG/ML SYRINGE 1ML IV PRN ×4 (08:57→21:04)
[2019-02-02] MEDS: ONDANSETRON HCL 4 MG/2 ML VIAL IV PRN ×3 (08:57→21:05)
[2019-02-02 09:00] VITALS: BP 117/76
[2019-02-02] MEDS: cefTRIAXone 1GM/50ML D5W 50 ML IV SCH (09:11)
--- NOTE | 2019-02-02 09:11 | NUR ---
Reviewed plan of care with pt, offered to change iv site to a new one per pt "why change it if its not broken i have bad veins, maybe later" pt also expressed concern over going home due to her houses pipes being worked on and she has no gas or water to wash her bedding, updated pt that i will express concern with md when he rounds on pt
[2019-02-02] MEDS: FLUCONAZOLE 200MG/100ML 100 ML IV SCH (10:01)
[2019-02-02] MEDS: SERTRALINE HCL 50 MG TAB PO SCH (10:01)
--- NOTE | 2019-02-02 11:58 | NUR ---
md rivas rounded on pt inquiring on sensitivity result for urine culture called micro awaiting call back from tech made aware
--- NOTE | 2019-02-02 12:24 | NUR ---
Nutrition Follow-up Notes: Wt.: 56.6 kg Pt was sleeping with no family by beside. per pt records pt with improving UTI. pt with no distress noted. pt is currently on cardiac diet with adequate PO of 100% x 2 per RN doc Est. Needs: 1700 kcal to 2000 kcal (30-35 kcal/kgBW), 57 gms to 70 gms pro (1.0-1.2 gms/kgBW). Will continue to monitor pertinent labs and reassess nutrient need prn Labs: GLU 134 H, ALB 3.1 L. Skin: Chaitanya scale 15, mod risk, redness on sacrum per hand i blocker. GI: Pt had 1 BM this morning per hand i blocker. PES: Altered nutrition related lab values r/t current/chronic medical condition aeb hyperglycemia,low Cr, elev. ALP, and mild hypoalbuminemia Increased nutrient needs r/t chronic current medical condition aeb 100% IBW, BMI 20.8 kg/m2, decreased muscle mass, mild hypoalbuminemia, refusing meals. Will continue to monitor PO intake, skin status, pertinent labs and weight trend. F/u in 3 to 5 days. Rec.: 1.) Consider Consistent Standard Carb: 60 gms/meal, Cardiac: 2 gms Na, Low Chol, Low Fat diet with Glucerna Shakes 1 carton BID. 2.) If Albumin continues trending down, consider Prostat 1 pkt BID. 3.) Consider daily MVI with minerals and Asc acid 500 mgs BID prn 4.) Consider close supervision and feeding assistance prn during meals. 5.) Refer to CDE/RD for further nutrition educ. and weight monitoring upon discharge. 6.) Continue current plan of care.
[2019-02-02 13:00] VITALS: BP 129/70
--- NOTE | 2019-02-02 13:00 | NUR ---
made aware of glucose 432
--- NOTE | 2019-02-02 13:45 | NUR ---
offered to start new iv line pt refused
--- NOTE | 2019-02-02 14:00 | NUR ---
made aware of vre status
[2019-02-02 17:00] VITALS: BP 144/76
--- NOTE | 2019-02-02 19:30 | NUR ---
Opening shift note Pt is resting in bed with eyes open and resp rate is even and unlabored. No s/s of any distress noted at this time. POC discussed pt and pt verbalizes understanding. bed is low, wheels are locked, and call light is with in reach.
[2019-02-02] MEDS: traZODone HCL 50 MG TAB PO SCH (21:05)
[2019-02-02] MEDS: ZOLPIDEM TARTRATE 5 MG TAB PO PRN (21:05)
[2019-02-02 22:00] VITALS: BP 118/76
[2019-02-03] MEDS: HYDROcodone-ACET 5/325MG TAB PO PRN ×3 (00:44→12:44)
[2019-02-03] MEDS: ONDANSETRON HCL 4 MG/2 ML VIAL IV PRN ×2 (04:28→08:41)
[2019-02-03] MEDS: MORPHINE SULF INJ 2 MG/ML SYRINGE 1ML IV PRN ×2 (04:28→08:41)
[2019-02-03 05:00] VITALS: BP 131/68
[2019-02-03] MEDS: InsuLIN REG 1unit/0.01ml Soln (100units/ml) SC SCH ×2 (05:46→12:04)
[2019-02-03] MEDS: ACCU-CHEK COMFORT CURVE STRIP VI SCH ×2 (05:46→12:01)
[2019-02-03] MEDS: SUCRALFATE 1 GM TAB PO SCH ×2 (05:56→12:00)
[2019-02-03] MEDS: GABAPENTIN 400 MG CAP PO SCH ×2 (05:56→12:44)
[2019-02-03] MEDS: VANCOMYCIN HCL 125MG/5ML ORAL SOL PO SCH ×2 (05:57→12:04)
[2019-02-03 08:29] VITALS: BP 101/56
[2019-02-03] MEDS: cefTRIAXone 1GM/50ML D5W 50 ML IV SCH (08:41)
[2019-02-03] MEDS ORDERED: AMOXICILLIN TRIHYDRATE 250 MG CAP PO SCH (10:00)
[2019-02-03] MEDS: FLUCONAZOLE 200MG/100ML 100 ML IV SCH (10:34)
[2019-02-03] MEDS: SERTRALINE HCL 50 MG TAB PO SCH (10:34)
--- NOTE | 2019-02-03 11:05 | NUR ---
Paged supervisor bakery sanitation correctional counselor/case manager re: [facility] for home safety evaluation.
[2019-02-03 11:10] VITALS: BP 101/56
--- NOTE | 2019-02-03 11:20 | NUR ---
Clarified with Dr. Blanca, patient is going home with Glass catheter.
--- NOTE | 2019-02-03 11:32 | NUR ---
Anna watermelon inspector case resolution specialist returned call. Instructions received. Patient's health insurance is [employer]. nAna will call again for further instructions.
[2019-02-03 13:00] VITALS: BP 145/80
--- NOTE | 2019-02-03 14:40 | NUR ---
Discharge instructions given as ordered. Encourage to follow up with PMD Dr. Cortes in 1-2 weeks and follow up with urology-Dr. Avelar in 1-2 weeks as instructed. [employer] case management will set up home health safety evaluation. All questions and concerns addressed. Patient verbalized understanding. Medication reconciliation form completed and copy given to patient. IV removed with catheter intact, pressure dressing applied. Patient taken to vehicle via wheelchair with all personal belongings, accompanied by staff and family member. No distress noted at time of departure.
--- NOTE | 2019-02-03 16:58 | NUR ---
SS consult regarding home health upon discharge. Spoke with Deborah skilled nursing case manager for [employer] who advised their contracted vendor was [employer]. Instructed covering nurse to fax face sheet, h&p, and order to agency and provided contact number. Additionally notified [facility] skilled nursing case manager that referral went to [facility].
== END 2019-02-03 14:40 | disposition home or self-care (01) | DRG 372 ==
LOC: ER 11:26 → EDBD 11:26 → OVERFLOW 11:27 → EAST 15:56
PROVIDERS: ADMIT Internal Medicine; ATTEND Internal Medicine
DX: A04.72 Enterocolitis due to Clostridium difficile, not specified as recurrent (principal); N13.6 Pyonephrosis; F11.20 Opioid dependence, uncomplicated; F41.9 Anxiety disorder, unspecified; F51.04 Psychophysiologic insomnia; K21.9 Gastro-esophageal reflux disease without esophagitis; G89.4 Chronic pain syndrome; F32.9 Major depressive disorder, single episode, unspecified; E11.42 Type 2 diabetes mellitus with diabetic polyneuropathy; M54.9 Dorsalgia, unspecified; E78.5 Hyperlipidemia, unspecified; K27.9 Peptic ulcer, site unspecified, unspecified as acute or chronic, without hemorrhage or perforation; N31.9 Neuromuscular dysfunction of bladder, unspecified; Z86.73 Personal history of transient ischemic attack (TIA), and cerebral infarction without residual deficits; Z87.891 Personal history of nicotine dependence; Z87.11 Personal history of peptic ulcer disease; Z81.8 Family history of other mental and behavioral disorders; Z82.49 Family history of ischemic heart disease and other diseases of the circulatory system; Z82.5 Family history of asthma and other chronic lower respiratory diseases; Z83.3 Family history of diabetes mellitus; Z90.710 Acquired absence of both cervix and uterus; Z88.8 Allergy status to other drugs, medicaments and biological substances; Z90.49 Acquired absence of other specified parts of digestive tract
CPT/HCPCS: 36415; 74176; 80053; 81001; 82962; 83690; 85025; 85048; 87045; 87086; 87088; 87186; 87427; 87493; 93005; 94761; 96361; 96365; 96375; G0378; J0696; J1450; J1815; J2405

== ENCOUNTER 2019-06-12 17:44 | Inpatient (IN) | payer OTHER ==
[~2019-06-12] VITALS: Ht 157.5 cm; Wt 52.1 kg
[2019-06-12] MEDS: MAGNESIUM SULFATE 1GM/100ML 100 ML IV SCH ×2 (00:57→23:15)
[~2019-06-12 17:44] MED LIST changes: -BACL10TA PO; +GLIP5TAB12 PO; +LINE1TAB6 PO; +NITR100C44 PO; -OXYB5TAB24 PO; +SUCR1TAB38 PO
[2019-06-12 19:01] LABS: Basophils # (auto) 0 10 ^3/uL (0-0.2); Basophils % (auto) 0.4 % (0.0-2.0); Eosinophils # (auto) 0.2 10 ^3/uL (0-0.8); Eosinophils % (auto) 1.9 % (0.0-7.0); Hematocrit 34.7 % (36.0-46.0); Hemoglobin 11.2 g/dL (12.2-16.2); Lymphocytes # (auto) 1.8 10 ^3/uL (0.4-5.4); Lymphocytes % (auto) 20.9 % (10.0-50.0); Mean Corpuscular Hemoglobin 27.1 pg (28.0-32.0); Mean Corpuscular Hgb Conc. 32.4 g/dL (32.0-36.0); Mean Corpuscular Volume 83.7 fL (80.0-100.0); Monocytes # (auto) 0.4 10 ^3/uL (0-1.3); Monocytes % (auto) 4.9 % (0.0-12.0); Neutrophils % (auto) 71.9 % (37.0-80.0); Nucleated Red Blood Cells % 0.1 %; Platelet Count (auto) 322 10^3/uL (140-450); Red Blood Cells 4.14 10^6/uL (4.0-5.20); Red Cell Distribution Width 15.5 % (11.8-14.3); White Blood Cell 8.4 10^3/uL (4.4-10.8)
[2019-06-12 19:19] LABS: Albumin 2.8 g/dL (3.4-5.0); Anion Gap 5 (5-15); Blood Urea Nitrogen 12 mg/dL (7-18); Calcium 8.7 mg/dL (8.5-10.1); Carbon Dioxide 26 mmol/L (21-32); Chloride 108 mmol/L (98-107); Glucose 91 mg/dL (74-106); Potassium 4.1 mmol/L (3.5-5.1); Sodium 139 mmol/L (136-145)
[2019-06-12 19:22] LABS: Urine Bacteria MANY /hpf (None Seen); Urine Blood 3+ /uL (Negative); Urine Budding Yeast FEW /hpf (None Seen); Urine Mucus FEW (None Seen); Urine Specific Gravity 1.015 (1.001-1.035); Urine WBC 672 /hpf (0 - 5); Urine WBC Clumps PRESENT /hpf (None Seen)
[2019-06-12 19:25] LABS: Alanine Aminotransferase 13 U/L (13-56); Alkaline Phosphatase 132 U/L (45-117); Aspartate Aminotransferase 17 U/L (15-37); BUN/Creatinine Ratio 23.1; Bilirubin, Total 0.3 mg/dL (0.2-1.0); GFR African American 151 mL/min; GFR Non-African American 125 mL/min
[2019-06-12] MEDS ORDERED: MORPHINE SULF INJ 2 MG/ML SYRINGE 1ML IV ONE ×2 (19:45→21:45)
[2019-06-12] MEDS ORDERED: ONDANSETRON HCL 4 MG/2 ML VIAL IV ONE ×2 (19:45→21:45)
[2019-06-12] MEDS ORDERED: cefTRIAXone 1GM/50ML D5W 50 ML IV ONE (19:45)
[2019-06-12] MEDS ORDERED: SODIUM CHLORIDE 0.9% 1,000 ML IVB ONE (20:02)
[2019-06-12] MEDS ORDERED: DEXTROSE (50%) 50ML SYRG IV PRN (23:15)
[2019-06-12] MEDS ORDERED: ACETAMINOPHEN 325 MG TAB PO PRN (23:15)
[2019-06-12] MEDS ORDERED: ERTAPENEM SOD INJ 1 GM in SODIUM CHL 0.9% 50 ML IV ONE (23:15)
[2019-06-12 23:55] VITALS: BP 112/77
--- NOTE | 2019-06-12 23:55 | NUR ---
Admitted this 69 year old, female client with the chief complaint of abdominal pain for 3 months and chronic back pain secondary to UTI with the diagnosis of Complicated Recurrent UTI. Pt. alert, awake, oriented x 4, Setswana speaking, coherent and following commands. Pt. came from home and went to ER. for s/s of UTI and admitted to Room 236 in [facility] by janeth or sima accompanied by ER. Personnel. Pt. is a Medical-Surgical pt, none tele, placed to the bed comfortably, initial assessment done, changed bed linens, bed sheet and floor gown. Pt. cleansed and washed and then keep dry and comfortable in bed. Pt. breathing regular with mild sob , @ 4 L/NC continuous, denies chest pain but verbalized presence of abdominal pain and chronic back pain around 5-6/10 scale. According to the pt.,she has intermittent Nausea and received Zofran @ ER. Pt. v/s taken and recorded, HOB UP @ 45-55 degrees angle, pt. with Nephrostomy tube @ the Right side and attached to the Right side of the body which draining yellow clear urine and Suprapubic cath draining brownish liquid draining by gravity to the bag. Pt. no s/s of pressure ulcer or decubs, only mild redness of the sacral and perineal area but skin is intact. Oriented pt. to the room/unit and provided health teachings on the hospital policies, such as "no smoking policy", V/s checked routinely as med-surg. pt., visiting hrs., medications ordered by Admitting physician, c-diff isolation, pt. safety by the use of call-light @ the bedside. Pt. also oriented the use of bed controls, TV, room telephone and room number. Provided pt. bedside nsg. care and assistance with the activities of daily living.
[2019-06-13] VITALS (7 sets, daily range): BP systolic 112–163; BP diastolic 66–89
[2019-06-13] MEDS: MAGNESIUM SULFATE 1GM/100ML 100 ML IV SCH ×3 (00:57→03:12)
--- NOTE | 2019-06-13 00:57 | NUR ---
Pt. Magnesium level is 1.5 , pt. given Magnesium Sulfate -Mag. rider 1 GM. as the first bag to support electrolyte needs. pt. provided explanation to the treatment/med. given. Pt. verbalized understanding. IV access @ the Left hand G # 22 keeps patent and intact.
[2019-06-13] MEDS ORDERED: ERTAPENEM SOD 1 GM INJ VIAL ONE (00:59)
[2019-06-13] MEDS: HYDROcodone-ACET 5/325MG TAB PO PRN ×4 (01:00→20:40)
[2019-06-13] MEDS: ONDANSETRON HCL 4 MG/2 ML VIAL IV PRN ×3 (01:00→20:52)
--- NOTE | 2019-06-13 01:00 | NUR ---
[place] 5/325 mg. 1 tab. po and Ondansetron 4 mg. IV given @ this time to keep pt. comfortable from pain and feeling of Nausea. Pt. aware of meds. given. Keep pt. safe and rough and trueing machine operator bed with call-light within pt.'s reach. Continue to gather pt. admission data. Pt. is compliant and coherent during the gathering of data.
[2019-06-13] MEDS: TEMAZEPAM 15 MG CAP PO PRN (03:00)
--- NOTE | 2019-06-13 03:00 | NUR ---
Pt. given Restoril 15 mg. po. given as pt. requested to help her sleep and relieve insomnia. Pt. encouraged to sleep now.
--- NOTE | 2019-06-13 03:12 | NUR ---
Pt. is resting and able to express needs. Pt. is able to communicate her needs and health concerns. The Second bag of Magnesium Sulfate or Magnesium rider given @ around this time. Mag. Nolberto IV x 2 completed @ this time. Pt. aware of the IV meds. given and her Mag. level result.
[2019-06-13] MEDS ORDERED: PNEUMOCOCCAL VACC POLYS 25 MCG/0.5 ML VIAL IM ONE (03:30)
[2019-06-13] MEDS ORDERED: INFLUENZA QUAD 2019-2020 0.5ml SYRG IM ONE (03:30)
--- NOTE | 2019-06-13 04:00 | NUR ---
Pt. is calm and resting. Stayed with the pt. Provided pt. psychological support and assisted with needs @ the bedside.
[2019-06-13 06:34] LABS: Basophils # (auto) 0 10 ^3/uL (0-0.2); Basophils % (auto) 0.5 % (0.0-2.0); Hemoglobin 11.5 g/dL (12.2-16.2); Monocytes # (auto) 0.4 10 ^3/uL (0-1.3)
[2019-06-13 06:41] LABS: Eosinophils # (auto) 0.3 10 ^3/uL (0-0.8); Eosinophils % (auto) 3.1 % (0.0-7.0); Hematocrit 35.1 % (36.0-46.0); Lymphocytes % (auto) 23.5 % (10.0-50.0); Mean Corpuscular Hemoglobin 27.6 pg (28.0-32.0); Mean Corpuscular Hgb Conc. 32.7 g/dL (32.0-36.0); Mean Corpuscular Volume 84.3 fL (80.0-100.0); Monocytes % (auto) 4.5 % (0.0-12.0); Neutrophils # (auto) 5.7 10 ^3/uL (1.6-8.6); Neutrophils % (auto) 68.4 % (37.0-80.0); Platelet Count (auto) 342 10^3/uL (140-450); Red Blood Cells 4.17 10^6/uL (4.0-5.20); Red Cell Distribution Width 15.8 % (11.8-14.3); White Blood Cell 8.4 10^3/uL (4.4-10.8)
--- NOTE | 2019-06-13 06:41 | NUR ---
Accucheck taken with result of BS = 144 , pt. given 2 units of Regular Human insulin SQ @ the Right side of the abdomen. Pt. made aware of the Regular Human Insulin given. Pt. verbalized understanding.
[2019-06-13 06:44] LABS: BUN/Creatinine Ratio 25.5
[2019-06-13] MEDS: ACCU-CHEK COMFORT CURVE STRIP VI SCH ×4 (06:55→22:29)
--- NOTE | 2019-06-13 07:00 | NUR ---
Opening Shift Note Received report on the patient. Awake lying in bed. Discussed plan of care with the patient. Patient shows no signs of distress at this time. Bed in lowest position, side rail up x2, and the call light is within reach. Will continue to monitor.
[2019-06-13] MEDS: InsuLIN REG 1unit/0.01ml Soln (100units/ml) SC SCH ×4 (07:18→22:33)
--- NOTE | 2019-06-13 07:24 | NUR ---
Pt. given [place] 5/325 mg. po and Ondansetron 4 mg. IV for pain @ the abdomen and chronic back pain and nausea feeling. provided psychological support. Keep pt. informed of present medical and nursing care.
--- NOTE | 2019-06-13 07:25 | NUR ---
Given report to the Day Shift RN. completely. Pt. resting in bed, keep pt. comfortable in bed.
[2019-06-13] MEDS: FAMOTIDINE 20 MG TAB PO SCH (09:33)
[2019-06-13] MEDS: SERTRALINE HCL 50 MG TAB PO SCH (09:33)
[2019-06-13] MEDS: GABAPENTIN 300 MG CAP PO SCH ×2 (09:33→22:21)
[2019-06-13] MEDS: ENOXAPARIN SOD 40 MG/0.4 ML SYRINGE SC SCH (09:34)
[2019-06-13] MEDS ORDERED: ERTAPENEM SOD INJ 1 GM in SODIUM CHL 0.9% 50 ML IV SCH (10:00)
--- NOTE | 2019-06-13 11:04 | NUR ---
assessment Patient is a 69 year old female who is alert and oriented. Patients cognitive abilities are intact. Prior to admission patient lived home with family and functioned with assistance. Per patient she will return home to her prior living arrangements post discharge and family will transport her home. Patients PCP is Dr Stover. Patient informed me her daughter Wen is her [facility] caregiver. Tommy has a wheelchair, fww, hospital bed and 02 for home use. Patient has no safety issues regarding returning home on discharge. Patient is on service with [facility]. I informed patient she has a right to speak to a licensed master social worker regarding all care. I informed patient she has a right to participate in any and all discharge planning. Patient does not have a POA and advanced directive. I have offered patient information on POA and advanced directives. I informed the patient the advantages and benefits of having an Advanced Directive. Patient verbalized understanding and agreed to discharge plan. Addendum: 06/14/19 at 1704 by Kirsty PAUL Amended: Links added.
--- NOTE | 2019-06-13 12:43 | NUR ---
MD called Dr. Wanda Mcclure regard pain medication and the patient's blood pressure of 159/72. Awaiting a call back.
[2019-06-13] MEDS ORDERED: hydrALAZINE HCL 20 MG/ML VL IV PRN (12:45)
[2019-06-13] MEDS ORDERED: amLODIPine BESYLATE 5 MG TAB PO ONE (12:45)
--- NOTE | 2019-06-13 14:15 | NUR ---
D/C Planning Per SS consult for home health suprapubic and nephrostomy care. Patient was on services with [facility]. Per Regine they will accept her back onto services upon discharge ). Advised GARFIELD Dumont with [facility] that patient will continue with [facility].
--- NOTE | 2019-06-13 19:20 | NUR ---
Received report from the Day Shift RN. Healy. Initial assessment done. Pt. resting in bed, on 4L/NC continuous, no s/s of sob, pt. calm and quiet @ this time.
--- NOTE | 2019-06-13 19:50 | NUR ---
Pt. incision site @ the suprapubic cath cleansed and washed with Normal Saline, gently pat dry with sterile soft gauze and covered with dsg. to protect it.
--- NOTE | 2019-06-13 20:00 | NUR ---
Assessment done and completed. Imaging lab. called and notified RN that pt. will have CT of the Chest, Abdomen, and Pelvis with Contrast either tonight or tomorrow. Pt. ate dinner already tonight. Informed and called back Imaging lab. that pt. ate dinner already and that this lab. procedure can be done tomorrow right after NPO @ [place]. Lab. imaging notified RN. Partida that CT of the Chest, Abdomen and Pelvis will be done tomorrow and agreed that pt. will be NPO post [place].
--- NOTE | 2019-06-13 20:40 | NUR ---
Pt. verbalized pain @ the abdomen and chronic back pain 6/10 scale. Pt. given 1 tab. of Collbran 5/325 mg. po. @ 2039 Pm. Provided pt. psychological support. Provided pt assistance with ADL's @ the bedside.
--- NOTE | 2019-06-13 20:52 | NUR ---
Pt. given Zofran 4 mg. IV for Nausea @ this time. Pt. felt relieved and encouraged her to rest, and assisted with bedside needs.
--- NOTE | 2019-06-13 21:40 | NUR ---
Pt. resting quietly, watching TV. Pt. with mild facial grimacing about 2/10 scale. Provided pt. assistance and encouraged pt. to sleep.
--- NOTE | 2019-06-13 21:52 | NUR ---
No s/s of Nausea or vomiting @ this time. Maintained pt. safety with call-light within pt.'s reach.
[2019-06-13] MEDS: SUCRALFATE 1 GM TAB PO SCH (22:21)
--- NOTE | 2019-06-13 22:21 | NUR ---
Meds. as scheduled given. Health teachings given on the use and indications of the scheduled meds. Keep pt. informed. Pt. verbalized understanding.
--- NOTE | 2019-06-13 22:26 | NUR ---
Accucheck taken with result of BS = 172. Pt. given 3 units of Regular Human insulin SQ @ the [facility]. Pt. aware of the blood sugar result.
[2019-06-13] MEDS: CILOSTAZOL 100 MG TAB PO SCH (22:31)
--- NOTE | 2019-06-14 | NUR ---
Pt. instructed to be on NPO post [place] and PROPERTY ASSESSMENT MONITOR made aware that pt. on NPO now for CT of the Chest, Abdomen and Pelvis tomorrow.
[2019-06-14] MEDS: TEMAZEPAM 15 MG CAP PO PRN ×2 (00:28→23:21)
--- NOTE | 2019-06-14 02:00 | NUR ---
Pt. provided bedside ns. care and psychological support. Pt. kept on NPO for CT of the Chest, Abdomen and Pelvis with contrast. Pt. made aware of the of the procedure each time pt. awakens to keep herself on NPO.
[2019-06-14] MEDS: HYDROcodone-ACET 5/325MG TAB PO PRN ×4 (05:08→20:30)
[2019-06-14] MEDS: ONDANSETRON HCL 4 MG/2 ML VIAL IV PRN ×4 (05:09→20:21)
[2019-06-14 05:47] VITALS: BP 124/61
[2019-06-14] MEDS: SUCRALFATE 1 GM TAB PO SCH ×4 (06:00→21:57)
[2019-06-14 06:17] LABS: Basophils # (auto) 0 10 ^3/uL (0-0.2); Basophils % (auto) 0.6 % (0.0-2.0); Eosinophils # (auto) 0.3 10 ^3/uL (0-0.8); Eosinophils % (auto) 3.7 % (0.0-7.0); Hematocrit 36.7 % (36.0-46.0); Hemoglobin 12.2 g/dL (12.2-16.2); Lymphocytes # (auto) 1.8 10 ^3/uL (0.4-5.4); Lymphocytes % (auto) 23.7 % (10.0-50.0); Mean Corpuscular Hemoglobin 27.6 pg (28.0-32.0); Mean Corpuscular Hgb Conc. 33.1 g/dL (32.0-36.0); Mean Corpuscular Volume 83.2 fL (80.0-100.0); Monocytes # (auto) 0.4 10 ^3/uL (0-1.3); Monocytes % (auto) 5.4 % (0.0-12.0); Neutrophils # (auto) 5.2 10 ^3/uL (1.6-8.6); Neutrophils % (auto) 66.6 % (37.0-80.0); Nucleated Red Blood Cells % 0.2 %; Platelet Count (auto) 365 10^3/uL (140-450); Red Blood Cells 4.41 10^6/uL (4.0-5.20); Red Cell Distribution Width 15.6 % (11.8-14.3); White Blood Cell 7.8 10^3/uL (4.4-10.8)
[2019-06-14 06:34] LABS: BUN/Creatinine Ratio 27.5; Calcium 9.2 mg/dL (8.5-10.1); Potassium 4.1 mmol/L (3.5-5.1)
[2019-06-14] MEDS: GABAPENTIN 300 MG CAP PO SCH ×3 (06:35→21:57)
[2019-06-14] MEDS: InsuLIN REG 1unit/0.01ml Soln (100units/ml) SC SCH ×4 (06:41→22:07)
[2019-06-14] MEDS: ACCU-CHEK COMFORT CURVE STRIP VI SCH ×4 (06:41→22:06)
--- NOTE | 2019-06-14 06:41 | NUR ---
Accucheck taken @ 0641 Am with BS resulted = 113 , No coverage for Regular Human Insulin needed. RN prepared Start IV Kit to start PIV G # [address] of the Chest, Abdomen and Pelvis. Kept pt. on NPO. Pt. compliant.
--- NOTE | 2019-06-14 07:00 | NUR ---
Gave report to the next Day Shift RN. Cardenas. Pt. calm and resting, still on NPO. [employer] LIBRARIAN made aware pt. on NPO.
--- NOTE | 2019-06-14 08:05 | NUR ---
Opening Note Assumed care of patient, she is A & O x4, no s/s of distress, patient c/o pain to the lower back that is chronic, headache, and abdominal pain. Will medicate per orders. POC discussed. Bed is in lowest, locked position, call light within reach. Will continue to monitor Q1h and PRN.
[2019-06-14 09:00] VITALS: BP 126/75
[2019-06-14] MEDS: CILOSTAZOL 100 MG TAB PO SCH ×2 (10:01→21:57)
[2019-06-14] MEDS: SERTRALINE HCL 50 MG TAB PO SCH (10:02)
[2019-06-14] MEDS: ENOXAPARIN SOD 40 MG/0.4 ML SYRINGE SC SCH (10:02)
[2019-06-14] MEDS: FAMOTIDINE 20 MG TAB PO SCH (10:02)
[2019-06-14] MEDS: amLODIPine BESYLATE 5 MG TAB PO SCH (10:04)
[2019-06-14] MEDS ORDERED: IOHEXOL 300 MG/ML 100ML BOTTLE IJ ONE (10:12)
[2019-06-14 13:00] VITALS: BP 127/71
--- NOTE | 2019-06-14 14:10 | NUR ---
Dr. Atkins at bedside.
--- NOTE | 2019-06-14 14:25 | NUR ---
Patient to CT for scan of humerus.
[2019-06-14 17:00] VITALS: BP 105/52
--- NOTE | 2019-06-14 19:30 | NUR ---
Opening Shift Note Assumed care of patient, awake and alert x4. Patient denies pain or shortness of breath at this time. Instructed on plan of care and to call for assistance as needed, patient verbalized understanding. Bed is locked in lowest position, side rails x 2 are up, call light is within reach, and bed alarm is on.
--- NOTE | 2019-06-14 20:21 | NUR ---
Pain Patient is complaining of pain to lower abdomen and lower back (pain scale 10/10). Patient medicated for pain as ordered by MD (see eMAR).
--- NOTE | 2019-06-14 21:21 | NUR ---
Pain Reassessment Patient noted laying in bed with even and unlabored respirations. Patient states her pain is better and is now 7/10. Bed is locked in lowest position, side rails x 2 are up, call light is within reach, and bed alarm is on.
[2019-06-14 22:20] VITALS: BP 113/59
[2019-06-15] MEDS ORDERED: AML5T PO (00:12)
--- NOTE | 2019-06-15 00:38 | NUR ---
Clearance for Discharge Per Wanda Salinas, call hematology in the morning and obtain clearance from hematology, once cleared patient can go home. Addendum: 06/15/19 at 0519 by OREN RICHARD RN RN Will endorse to day shift YANET.
[2019-06-15] MEDS: ONDANSETRON HCL 4 MG/2 ML VIAL IV PRN ×2 (01:17→06:42)
[2019-06-15] MEDS: HYDROcodone-ACET 5/325MG TAB PO PRN ×2 (01:18→06:42)
[2019-06-15 05:50] VITALS: BP 97/51
[2019-06-15 06:10] LABS: BUN/Creatinine Ratio 28.8; Potassium 4.4 mmol/L (3.5-5.1)
[2019-06-15] MEDS: SUCRALFATE 1 GM TAB PO SCH (06:40)
[2019-06-15] MEDS: ACCU-CHEK COMFORT CURVE STRIP VI SCH (06:48)
[2019-06-15] MEDS: InsuLIN REG 1unit/0.01ml Soln (100units/ml) SC SCH (06:49)
[2019-06-15 09:00] VITALS: BP 116/51
--- NOTE | 2019-06-15 09:10 | NUR ---
Spoke to Dr. Atkins over telephone. Informed him of patient humeral CT, and need for clearance to be discharged by Dr. Wanda Salinas. Dr. Atkins stated "she is cleared to go home from his standpoint." Will discharge per orders.
[2019-06-15] MEDS ORDERED: INFLUENZA QUAD 2019-2020 0.5ml SYRG IM ONE (09:30)
[2019-06-15] MEDS: CILOSTAZOL 100 MG TAB PO SCH (10:00)
[2019-06-15] MEDS: ENOXAPARIN SOD 40 MG/0.4 ML SYRINGE SC SCH (10:00)
[2019-06-15] MEDS: GABAPENTIN 300 MG CAP PO SCH (10:00)
[2019-06-15] MEDS: amLODIPine BESYLATE 5 MG TAB PO SCH (10:00)
[2019-06-15] MEDS: FAMOTIDINE 20 MG TAB PO SCH (10:00)
[2019-06-15] MEDS: SERTRALINE HCL 50 MG TAB PO SCH (10:00)
--- NOTE | 2019-06-15 11:25 | NUR ---
Discharge instructions given as ordered. Encourage to follow up with PMD as instructed. All questions and concerns addressed. Patient verbalized understanding. Medication reconciliation form completed and copy given to patient. Needed vaccines given. IV removed with catheter intact, pressure dressing applied, garcia catheter remains suprapubic. Patient taken to vehicle via wheelchair with all personal belongings, accompanied by staff and family member. No distress noted at time of departure.
--- NOTE | 2019-06-15 12:00 | NUR ---
PATIENT DISCHARGED Addendum: 06/15/19 at 1259 by Theresa Rachel RN Amended: Links added.
== END 2019-06-15 11:25 | disposition home health service (06) | DRG 392 ==
LOC: EDBD 17:44 → EDUNIT# 17:44 → ER 17:44 → EAST 17:45
PROVIDERS: ADMIT Nurse Practitioner; ATTEND Internal Medicine
DX: R10.30 Lower abdominal pain, unspecified (principal); N13.6 Pyonephrosis; L03.818 Cellulitis of other sites; J96.11 Chronic respiratory failure with hypoxia; E44.1 Mild protein-calorie malnutrition; D64.9 Anemia, unspecified; N21.0 Calculus in bladder; E83.42 Hypomagnesemia; I10 Essential (primary) hypertension; K21.9 Gastro-esophageal reflux disease without esophagitis; J44.9 Chronic obstructive pulmonary disease, unspecified; M25.511 Pain in right shoulder; M25.512 Pain in left shoulder; E11.42 Type 2 diabetes mellitus with diabetic polyneuropathy; B95.61 Methicillin susceptible Staphylococcus aureus infection as the cause of diseases classified elsewhere; R16.2 Hepatomegaly with splenomegaly, not elsewhere classified; I25.10 Atherosclerotic heart disease of native coronary artery without angina pectoris; Z99.3 Dependence on wheelchair; Z93.6 Other artificial openings of urinary tract status; Z23 Encounter for immunization; Z87.440 Personal history of urinary (tract) infections; Z88.8 Allergy status to other drugs, medicaments and biological substances; Z88.6 Allergy status to analgesic agent; Z79.84 Long term (current) use of oral hypoglycemic drugs; Z90.49 Acquired absence of other specified parts of digestive tract; Z95.5 Presence of coronary angioplasty implant and graft; Z90.89 Acquired absence of other organs; Z82.49 Family history of ischemic heart disease and other diseases of the circulatory system; Z87.891 Personal history of nicotine dependence; Z90.5 Acquired absence of kidney; Z82.5 Family history of asthma and other chronic lower respiratory diseases; Z81.8 Family history of other mental and behavioral disorders; Z83.49 Family history of other endocrine, nutritional and metabolic diseases
CPT/HCPCS: 36415; 71045; 71260; 73200; 74176; 74177; 80048; 80053; 81001; 82962; 83735; 84484; 85025; 87077; 87081; 87086; 87088; 87186; 87205; 96365; 96367; 96375; G0378; J0696; J1335; J1815; J2405; J7060

== ENCOUNTER 2019-08-19 20:11 | Inpatient (IN) | payer OTHER ==
[~2019-08-19] VITALS: Ht 162.6 cm; Wt 58.1 kg
[~2019-08-19 20:11] MED LIST changes: +AML5T PO; -LINE1TAB6 PO; -NITR100C44 PO; -PRO10T PO
[2019-08-19] MEDS ORDERED: MORPHINE SULFATE 10 MG/ML INJ 1ML SDV IV ONE (20:45)
[2019-08-19] MEDS ORDERED: ONDANSETRON HCL 4 MG/2 ML VIAL IV ONE (20:45)
[2019-08-19 22:02] LABS: Basophils # (auto) 0 10 ^3/uL (0-0.2); Eosinophils # (auto) 0.2 10 ^3/uL (0-0.8); Hemoglobin 11.2 g/dL (12.2-16.2); Mean Corpuscular Hemoglobin 25.7 pg (28.0-32.0); Monocytes # (auto) 0.5 10 ^3/uL (0-1.3); White Blood Cell 10.9 10^3/uL (4.4-10.8)
[2019-08-19 22:04] LABS: Basophils % (auto) 0.3 % (0.0-2.0); Eosinophils % (auto) 2.3 % (0.0-7.0); Hematocrit 35.1 % (36.0-46.0); Lymphocytes % (auto) 18.7 % (10.0-50.0); Mean Corpuscular Hgb Conc. 31.8 g/dL (32.0-36.0); Mean Corpuscular Volume 80.8 fL (80.0-100.0); Monocytes % (auto) 4.4 % (0.0-12.0); Neutrophils # (auto) 8.1 10 ^3/uL (1.6-8.6); Neutrophils % (auto) 74.3 % (37.0-80.0); Platelet Count (auto) 428 10^3/uL (140-450); Red Blood Cells 4.34 10^6/uL (4.0-5.20)
[2019-08-19 22:19] LABS: Albumin 2.6 g/dL (3.4-5.0); Amylase 11 U/L (25-115); Anion Gap 5 (5-15); Blood Urea Nitrogen 17 mg/dL (7-18); Calcium 8.8 mg/dL (8.5-10.1); Carbon Dioxide 24 mmol/L (21-32); Chloride 108 mmol/L (98-107); Glucose 115 mg/dL (74-106); Lipase 40 U/L (73-393); Magnesium 1.9 mg/dL (1.6-2.6); Potassium 4.8 mmol/L (3.5-5.1); Sodium 137 mmol/L (136-145)
[2019-08-19 22:23] LABS: INR 1.01 (0.9-1.15); Partial Thromboplastin Time 30.2 sec (23.64-32.05)
[2019-08-19 22:25] LABS: Urine Bacteria MANY /hpf (None Seen); Urine Blood 3+ /uL (Negative); Urine WBC 4126 /hpf (0 - 5)
[2019-08-19 22:29] LABS: Urine Specific Gravity 1.018 (1.001-1.035)
[2019-08-19 22:36] LABS: Alanine Aminotransferase 13 U/L (13-56); Alkaline Phosphatase 130 U/L (45-117); Aspartate Aminotransferase 17 U/L (15-37); BUN/Creatinine Ratio 28.3; Bilirubin, Total 0.3 mg/dL (0.2-1.0); GFR African American 128 mL/min; GFR Non-African American 106 mL/min; Total Protein 6.9 g/dL (6.4-8.2)
[2019-08-19] MEDS ORDERED: CEFTRIAXONE SODIUM 2 GM in D5W 5% 50 ML IV ONE (23:30)
[2019-08-19] MEDS ORDERED: SODIUM CHLORIDE 0.9% 1,000 ML IV ONE (23:30)
[2019-08-19] MEDS ORDERED: cefTRIAXone 1GM/50ML D5W 0 ML IV ONE (23:40)
[2019-08-19] MEDS ORDERED: cefTRIAXone SOD 1,000 MG VL ONE ×2 (23:40→23:41)
[2019-08-20] VITALS (7 sets, daily range): BP systolic 120–149; BP diastolic 63–77
[2019-08-20] MEDS ORDERED: MORPHINE SULFATE 10 MG/ML INJ 1ML SDV IV ONE (00:45)
[2019-08-20] MEDS ORDERED: ONDANSETRON HCL 4 MG/2 ML VIAL IV PRN (04:15)
[2019-08-20] MEDS ORDERED: IPRATROPIUM BROM 0.5 MG/2.5ML INH SOL NEB PRN (04:15)
[2019-08-20] MEDS ORDERED: DOCUSATE SOD 100 MG CAP PO PRN (04:15)
[2019-08-20] MEDS ORDERED: ALBUTEROL SULF 2.5 MG/0.5ML(0.5%) NEB SOLN NEB PRN (04:15)
[2019-08-20] MEDS ORDERED: MORPHINE SULF INJ 2 MG/ML SYRINGE 1ML IV PRN (04:15)
[2019-08-20] MEDS ORDERED: DEXTROSE (50%) 50ML SYRG IV PRN (04:15)
[2019-08-20] MEDS ORDERED: ACETAMINOPHEN 325 MG TAB PO PRN (04:15)
[2019-08-20] MEDS ORDERED: MORPHINE SULFATE 4 MG/ML SYR/VIAL IV PRN (04:45)
[2019-08-20] MEDS: SODIUM CHLORIDE 0.9% 1,000 ML IV SCH ×2 (04:56→14:16)
[2019-08-20 06:02] LABS: Basophils # (auto) 0 10 ^3/uL (0-0.2); Basophils % (auto) 0.3 % (0.0-2.0); Eosinophils # (auto) 0.2 10 ^3/uL (0-0.8); Eosinophils % (auto) 2.5 % (0.0-7.0); Hematocrit 36.4 % (36.0-46.0); Hemoglobin 11.6 g/dL (12.2-16.2); Lymphocytes # (auto) 1.7 10 ^3/uL (0.4-5.4); Lymphocytes % (auto) 17.6 % (10.0-50.0); Mean Corpuscular Hemoglobin 25.8 pg (28.0-32.0); Mean Corpuscular Hgb Conc. 31.8 g/dL (32.0-36.0); Monocytes # (auto) 0.4 10 ^3/uL (0-1.3); Monocytes % (auto) 4.4 % (0.0-12.0); Neutrophils # (auto) 7.4 10 ^3/uL (1.6-8.6); Neutrophils % (auto) 75.2 % (37.0-80.0); Platelet Count (auto) 439 10^3/uL (140-450); Red Cell Distribution Width 17.7 % (11.8-14.3); White Blood Cell 9.8 10^3/uL (4.4-10.8)
[2019-08-20 06:32] LABS: Potassium 4.5 mmol/L (3.5-5.1)
[2019-08-20 06:38] LABS: Calcium 8.7 mg/dL (8.5-10.1)
[2019-08-20] MEDS ORDERED: VANCOMYCIN PER PHARMACY 0 MG IV SCH (06:45)
[2019-08-20] MEDS ORDERED: InsuLIN REG 1unit/0.01ml Soln (100units/ml) SC SCH ×2 (08:00→17:00)
[2019-08-20] MEDS ORDERED: ACCU-CHEK COMFORT CURVE STRIP VI SCH ×2 (08:00→17:00)
[2019-08-20] MEDS: HYDROcodone-ACET 5/325MG TAB PO PRN ×2 (08:46→12:53)
[2019-08-20] MEDS ORDERED: VANCOMYCIN 1GM/250ML 250 ML IV SCH (09:00)
[2019-08-20] MEDS ORDERED: levoFLOXacin 500MG 100 ML IV SCH (10:00)
[2019-08-20] MEDS ORDERED: OXYCODONE W/ ACETAMINOPHEN 5/325MG TABLET PO PRN ×2 (14:30→16:45)
[2019-08-20] MEDS ORDERED: OMEP20TA PO (16:03)
[2019-08-20] MEDS ORDERED: SUCR1TAB38 PO (16:03)
[2019-08-20] MEDS ORDERED: BACL10TA PO (16:03)
[2019-08-20] MEDS ORDERED: OXYB5TAB24 PO (16:24)
[2019-08-20] MEDS ORDERED: PERCOT PO (16:24)
[2019-08-20] MEDS ORDERED: LEVO500T21 PO (16:32)
[2019-08-20] MEDS ORDERED: OXYBUTYNIN CHL 5 MG TAB PO SCH (22:00)
== END 2019-08-20 21:40 | disposition home or self-care (01) | DRG 700 ==
LOC: EDBD 20:11 → ER 20:14 → TELE-EAST 20:15
PROVIDERS: ADMIT Hospitalist; ATTEND Internal Medicine
DX: T83.511A Infection and inflammatory reaction due to indwelling urethral catheter, initial encounter (principal); N39.0 Urinary tract infection, site not specified; E11.9 Type 2 diabetes mellitus without complications; I25.10 Atherosclerotic heart disease of native coronary artery without angina pectoris; K21.9 Gastro-esophageal reflux disease without esophagitis; N13.5 Crossing vessel and stricture of ureter without hydronephrosis; J44.9 Chronic obstructive pulmonary disease, unspecified; N31.9 Neuromuscular dysfunction of bladder, unspecified; Z81.8 Family history of other mental and behavioral disorders; Z82.49 Family history of ischemic heart disease and other diseases of the circulatory system; Z82.5 Family history of asthma and other chronic lower respiratory diseases; Z87.891 Personal history of nicotine dependence; Z83.3 Family history of diabetes mellitus; Z88.8 Allergy status to other drugs, medicaments and biological substances; Z90.49 Acquired absence of other specified parts of digestive tract
CPT/HCPCS: 36415; 74176; 76775; 80048; 80053; 81001; 82150; 82962; 83036; 83690; 83735; 84443; 84484; 85025; 85610; 85730; 87086; 93005; 96365; 96375; 96376; G0378; J0696; J1815; J1956; J2405; J7060